=== PATIENT | male | born 1975 | race Caucasian/White ===

== ENCOUNTER 2021-07-05 04:23 | Emergency (ER) | payer OTHER, SELFPAY ==
--- NOTE | ~2021-07-05 | XR_ITS ---
EXAMINATION: XR chest 2V DATE: 07/05/2021 05:08 INDICATION: Chest tightness. Shortness of breath. TECHNIQUE: Frontal and lateral views of the chest were obtained. COMPARISON: Chest 2 views 12/27/2018 FINDINGS: There is mild atelectasis at left lung base. No pleural effusion or pneumothorax. The heart size is normal. There is mild chronic anterior wedging of multiple thoracic vertebral bodies. IMPRESSION: 1. Mild atelectasis at left lung base. Reviewed, dictated and finalized at location B. [employer]
[2021-07-05 04:32] VITALS: BP 188/113; PULSE 91; RESP 18; TEMP 36.6; O2SAT 100
--- NOTE | 2021-07-05 04:39 | ECG_ITS ---
Measurements Intervals [place] Rate: 71 P: 43 CT: 159 QRS: 8 QRSD: 88 T: 21 QT: 360 QTc: 393 Interpretive Statements SINUS RHYTHM WITH SINUS ARRHYTHMIA BASELINE ARTIFACT- V1 NORMAL ECG Electronically Signed On 07-05-2021 6:16:44 WATCH TECHNICIAN by Chemo Pollock D.O.
[2021-07-05 04:57] VITALS: PULSE 71
[2021-07-05 05:08] VITALS: O2SAT 98
[2021-07-05] MEDS: ASPIRIN 81 MG CHEWABLE TABLET 324 MG PO (05:08)
[2021-07-05 05:18] LABS: Basophils Percent Auto 0.4 % (0.2-1.2); Eosinophils Absolute Auto 0.1 K/mm3 (0-0.3); Hematocrit 46.2 % (42.0-52.0); Hemoglobin 15.6 g/dL (14.0-18.0); Immature Granulocyte Absolute 0.02 K/mm3 (0.00-0.031); Immature Granulocyte Percent A 0.4 % (0-0.5); Lymphocytes Absolute Auto 1.24 K/mm3 (0.9-3.2); Lymphocytes Percent Auto 26.4 % (18.3-44.2); Mean Corpuscular HGB Conc 33.8 g/dl (32-36); Mean Corpuscular Hemoglobin 29.7 pg (26-34); Mean Platelet Volume 9.5 fl (7.4-10.4); Monocytes Absolute Auto 0.3 K/mm3 (0.1-0.6); Monocytes Percent Auto 6.6 % (2.6-8.5); Neutrophils Percent Auto 63.2 % (45.5-73.1); Platelet Count Result 266 k/mm3 (150-375); Red Blood Count 5.25 M/mm3 (4.6-6.20); Red Cell Distribution Width 12.4 % (11.5-14.5); White Blood Count 4.7 K/mm3 (4.5-10.0)
[2021-07-05 05:28] LABS: Alanine Aminotransferase 45 U/L (4-50); Albumin Level 4.5 g/dL (3.5-5.1); Alkaline Phosphatase 79 U/L (38-126); Anion Gap 9 mmol/L (8-16); Aspartate Amino Transferase 32 U/L (17-59); Bilirubin,Total 0.5 mg/dL (0.2-1.3); Blood Urea Nitrogen 18 mg/dL (9-20); Calcium 9.7 mg/dL (8.4-10.2); Carbon Dioxide 27 mmol/L (22-30); Chloride 102 mmol/L (98-107); Estimated CRCL calculation 83 ml/min; Estimated Glomerular Filt Rate > 60; Glucose 119 mg/dL (65-110); Lipase 199 U/L (23-300); Potassium 4.1 mmol/L (3.4-5.0); Sodium 138 mmol/L (137-145)
[2021-07-05 05:29] LABS: Prothrombin Time 12.6 Seconds (11.1-14.7)
[2021-07-05 05:30] LABS: Partial Thromboplastin Time 25.4 SECONDS (22.3-36.8)
[2021-07-05] MEDS: LORazepam INJ (*CRX) 2 MG/ML VIAL 0.5 MG IV PUSH (05:38)
[2021-07-05 05:39] VITALS: BP 149/89; PULSE 68; RESP 20; O2SAT 99
[2021-07-05 05:40] LABS: Troponin I < 0.012 ng/mL (0.000-0.034)
--- NOTE | 2021-07-05 05:45 | ED.GENADULT ---
HPI - General Adult General Chief complaint: Chest Pain Stated complaint: HTN, Chest pain Time Seen by Provider: 07/05/21 04:54 History of Present Illness HPI narrative: Patient 46-year-old gentleman who presents the emergency department chief complaint of chest tightness and high blood pressure. The patient reports that this evening he felt a tightness feeling in his chest and reports that he noticed his blood pressure was elevated. The patient states that it felt like a heaviness or fullness in his chest reports that did not radiate to his neck the patient denies diaphoresis patient reports his blood pressure was 190/120 the patient states that he has been under little bit more stress the patient states that the pain in his chest is doing little bit better Related Data Home Medications Medication Instructions Recorded Confirmed omeprazole 40 mg capsule,delayed 40 mg PO DAILY 12/08/19 12/08/19 release Allergies Allergy/AdvReac Type Severity Reaction Status Date / Time No Known Allergies Allergy Verified 07/05/21 04:38 Review of Systems Review of Systems: A 10 system review of systems was completed on the patient and is negative except for what is stated in the HPI. Nursing and ancillary documentation was reviewed. [facility] Past Medical History Medical History (Updated 07/05/21 @ 06:21 by Husam West MD) Asthma Bipolar 2 disorder Hypertension Family History Family History Mother Depression Asthma Father , Age 37 Unknown No problems noted. Sibling Schizophrenia Social History Social History Smoking status: Never smoker Alcohol intake: current Drinks per week: 21 Alcohol use details: drinks 3 glasses of wine daily Substance use: never Gender identity (if verbalized by the patient): Male Exam Narrative: GENERAL: Well-appearing, well-nourished, and in no acute distress. HEAD: Normocephalic, atraumatic. EYES: PERRLA and EOMI. ENT: Nares clear, no rhinorrhea or epistaxis. Mucous membranes moist. NECK: Supple. CHEST: Clear to auscultation. No respiratory distress. HEART: Regular rate and rhythm. No murmur heard. Normal peripheral pulses. ABDOMEN: Soft, nontender, nondistended, normal active bowel sounds. EXTREMITIES: Normal range of motion. No edema. SKIN: Warm, dry, no rash. NEURO: No focal deficits. Alert and oriented x3. PSYCH: Normal mood and affect. Course Course Emergency Course: EKG sinus rhythm rate of [address] elevation or ST depression Chest x-ray shows no focal infiltrate Vital Signs Vital signs: Vital Signs Temperature 36.6 C 07/05/21 04:32 Pulse Rate 91 07/05/21 04:32 Respiratory Rate 18 07/05/21 04:32 Blood Pressure 188/113 H 07/05/21 04:32 Pulse Oximetry 100 07/05/21 04:32 Temperature 36.6 C 07/05/21 04:32 Pulse Rate 68 07/05/21 05:39 Respiratory Rate 20 07/05/21 05:39 Blood Pressure 149/89 H 07/05/21 05:39 Pulse Oximetry 99 07/05/21 05:39 Medical Decision Making Vital Signs Vital Signs: Vital Signs Temperature 36.6 C 07/05/21 04:32 Pulse Rate 91 07/05/21 04:32 Respiratory Rate 18 07/05/21 04:32 Blood Pressure 188/113 H 07/05/21 04:32 Pulse Oximetry 100 07/05/21 04:32 Temperature 36.6 C 07/05/21 04:32 Pulse Rate 68 07/05/21 05:39 Respiratory Rate 20 07/05/21 05:39 Blood Pressure 149/89 H 07/05/21 05:39 Pulse Oximetry 99 07/05/21 05:39 Lab Data Result diagrams: 07/05/21 04:48 07/05/21 04:48 Labs: Lab Results 07/05/21 07/05/21 07/05/21 Range/Units 04:48 04:48 04:48 WBC 4.7 (4.5-10.0) K/mm3 RBC 5.25 (4.6-6.20) M/mm3 Hgb 15.6 (14.0-18.0) g/dL Hct 46.2 (42.0-52.0) % MCV 88.0 (80-100) fl MCH 29.7 (26-34) pg MCHC 33.8 (32-36) g/dl RDW 12.4
[2021-07-05 06:38] VITALS: BP 137/93; PULSE 66; RESP 18; O2SAT 100
== END 2021-07-05 06:39 | disposition home or self-care (01) ==
PROVIDERS: Emergency Provider Emergency Medicine; PCP Internal Medicine
DX: R07.89 Other chest pain (principal); I10 Essential (primary) hypertension; J45.909 Unspecified asthma, uncomplicated; F31.81 Bipolar II disorder
CPT/HCPCS: 36415; 71046; 80053; 83690; 84484; 85025; 85610; 85730; 93005; 96374; 99284; A9270; J2060

== ENCOUNTER 2021-10-26 03:24 | Inpatient (IN) | payer OTHER, SELFPAY ==
[2021-10-26] VITALS (12 sets, daily range): BP systolic 125–145; BP diastolic 69–86; PULSE 83–105; RESP 16–18; TEMP 37.1–37.8; O2SAT 96–100; BMI 27.8
--- NOTE | ~2021-10-26 | CT_ITS ---
EXAMINATION: CT drain retroperitoneal, CT drain retroperitoneal DATE: 10/28/2021 12:04 (accession [id number]), 10/28/2021 12:05 (accession [id number]) INDICATION: Retroperitoneal abscesses post perforated appendicitis TECHNIQUE: The procedure including the risks and benefits was discussed with the patient. Risks discu ssed included bleeding and infection. The patient understood the risks and benefits and agreed to pro ceed. The patient was confirmed to be receiving appropriate antibiotic coverage. The skin overlying the lateral right lower quadrant of the abdomen was prepped and draped in usual sterile fashion. Cons cious sedation was provided with 150 mcg fentanyl and 1 mg Versed. Local anesthetic was administered with 1% lidocaine subcutaneously. 18-gauge needles were inserted into both the right lower quadrant p eriappendiceal abscess as well as the right psoas abscess with positioning confirmed by CT. The inner stylette was removed and a J-wire was advanced into both fluid collections with positioning again co nfirmed by CT. Utilizing Seldinger technique the needle was removed over the wires and the tracts ser ially dilated to 12 Lebanese. Following tract dilation 12 Fr catheters were inserted over the wires int o both of the fluid collections. The loops were formed and locked and following confirmation of posit ioning by CT the wires were removed. The catheters were stitched to the skin with suture, antibiotic ointment and a sterile dressing applied. 7 mL of opaque reddish fluid was aspirated from the psoas ab scess. 8 mm of opaque reddish-beaulieu fluid was aspirated from the periappendiceal abscess. Both catheter s were then attached to suction drainage and was draining small amount of additional fluid at the con clusion of the procedure. There were no immediate complications. The dose-length product was 260.25 m Gy-cm. FINDINGS: CT images demonstrate the catheters within both the periappendiceal abscess as well as the right psoas muscle abscess. A total of 15 mL fluid was aspirated for testing. IMPRESSION: 1. Successful CT-guided periappendiceal abscess drainage catheter placement. 2. Successful CT-guided right psoas abscess drainage catheter placement. Reviewed, dictated and finalized at location A. IMPRESSION: 1. Successful CT-guided periappendiceal abscess drainage catheter placement. 2. Successful CT-guided right psoas abscess drainage catheter placement.
--- NOTE | ~2021-10-26 | CT_ITS ---
EXAMINATION: CT abdomen pelvis w con INDICATION: Right-sided abdominal pain TECHNIQUE: Computed tomographic images of the abdomen and pelvis were obtained after the administrati on of 100 cc of Omnipaque 350 intravenous contrast. The dose-length product (DLP) was 836.34 mGy-cm. Automated exposure control and iterative reconstruction technique were employed. COMPARISON: None available FINDINGS: Minimal dependent atelectasis is present in the lung bases. The heart size is normal. There is a small sliding hiatal hernia. The liver, spleen, pancreas, gallbladder, and adrenal glands are n ormal. The kidneys are unremarkable. The appendix is enlarged and ill-defined. There is marked inflam mation of the periappendiceal fat. There is a 5.2 x 3.6 cm abscess of the right lower quadrant. There is a second 4.4 x 2.7 cm abscess abutting or involving the right iliopsoas muscle. No pathologically enlarged abdominal or pelvic lymph nodes are identified. There are no dilated loops of bowel. IMPRESSION: 1. Perforated appendicitis with right lower quadrant abscesses as described above. These findings wer e discussed with Dr. Nguyen in the Emergency Department at 0819 hours on 10/26/2021. Reviewed, dictated and finalized at location A. IMPRESSION: 1. Perforated appendicitis with right lower quadrant abscesses as described abo ve. These findings were discussed with Dr. Nguyen in the Emergency Department at 0819 hours on 10/26/2021.
[2021-10-26] MEDS: SODIUM CHLORIDE 0.9% IV 1,000 ML 999 ML IV CONT (04:38)
[2021-10-26] MEDS: diphenhydrAMINE HCl INJ 50 MG/ML VIAL IV PUSH (04:38)
[2021-10-26] MEDS: METOCLOPRAMIDE HCL INJ 10 MG/2 ML VIAL IV PUSH (04:38)
--- NOTE | 2021-10-26 04:52 | ED.GENADULT ---
HPI - General Adult General Chief complaint: Nausea/Vomiting/Diarrhea Stated complaint: N/V Time Seen by Provider: 10/26/21 04:16 History of Present Illness HPI narrative: Patient is a a 46-year-old gentleman who presents to the emergency department with chief complaint of nausea vomiting and abdominal discomfort. The patient states he has not been feeling right since he was started on a antidepressant medication. Patient states that that he stopped the medication several days ago but continues to have nausea vomiting fogginess and is also started having abdominal pain and had 1 episode of diarrhea. Patient pain is more on the right side of his abdomen reports that it is worsened with movement improved with rest. Related Data Home Medications Medication Instructions Recorded Confirmed omeprazole 40 mg capsule,delayed 40 mg PO DAILY 12/08/19 12/08/19 release Allergies Allergy/AdvReac Type Severity Reaction Status Date / Time No Known Allergies Allergy Verified 09/10/21 10:20 Review of Systems Review of Systems: A 10 system review of systems was completed on the patient and is negative except for what is stated in the HPI. Nursing and ancillary documentation was reviewed. [facility] Past Medical History Medical History Asthma Hypertension Family History Family History Mother Depression Asthma Father , Age 37 Unknown No problems noted. Sibling Schizophrenia Social History Social History Smoking status: Never smoker Alcohol intake: current Drinks per week: 21 Alcohol use details: drinks 3 glasses of wine daily Substance use: never Gender identity (if verbalized by the patient): Male Exam Narrative: GENERAL: Well-appearing, well-nourished, and in no acute distress. HEAD: Normocephalic, atraumatic. EYES: PERRLA and EOMI. ENT: Nares clear, no rhinorrhea or epistaxis. Mucous membranes moist. NECK: Supple. CHEST: Clear to auscultation. No respiratory distress. HEART: Regular rate and rhythm. No murmur heard. Normal peripheral pulses. ABDOMEN: Soft, tenderness to the right lower quadrant, nondistended, normal active bowel sounds. EXTREMITIES: Normal range of motion. No edema. SKIN: Warm, dry, no rash. NEURO: No focal deficits. Alert and oriented x3. PSYCH: Normal mood and affect. Course Vital Signs Vital signs: Vital Signs Temperature 37.2 C 10/26/21 03:26 Pulse Rate 105 H 10/26/21 03:26 Respiratory Rate 18 10/26/21 03:26 Blood Pressure 126/86 10/26/21 03:26 Pulse Oximetry 100 10/26/21 03:26 Temperature 37.2 C 10/26/21 03:26 Pulse Rate 105 H 10/26/21 03:26 Respiratory Rate 18 10/26/21 03:26 Blood Pressure 126/86 10/26/21 03:26 Pulse Oximetry 100 10/26/21 03:26 Medical Decision Making Vital Signs Vital Signs: Vital Signs Temperature 37.2 C 10/26/21 03:26 Pulse Rate 105 H 10/26/21 03:26 Respiratory Rate 18 10/26/21 03:26 Blood Pressure 126/86 10/26/21 03:26 Pulse Oximetry 100 10/26/21 03:26 Temperature 37.2 C 10/26/21 03:26 Pulse Rate 105 H 10/26/21 03:26 Respiratory Rate 18 10/26/21 03:26 Blood Pressure 126/86 10/26/21 03:26 Pulse Oximetry 100 10/26/21 03:26 Lab Data Result diagrams: 10/26/21 04:42 10/26/21 04:42 Labs: Lab Results 10/26/21 10/26/21 10/26/21 Range/Units 04:42 04:42 04:42 WBC Pending RBC Pending Hgb Pending Hct Pending MCV Pending MCH Pending MCHC Pending RDW Pending Plt Count Pending MPV Pending Immature Gran % (Auto) Pending Neut % (Auto) Pending Lymph % (Auto) Pending [place] % (Auto) Pending Eos % (Auto) Pending Baso % (Auto) Pending Lymph # (Auto)
[2021-10-26 05:01] LABS: Basophils Percent Auto 0.1 % (0.2-1.2); Eosinophils Absolute Auto 0.1 K/mm3 (0-0.3); Eosinophils Percent Auto 0.4 % (0-4.4); Hematocrit 38.3 % (42.0-52.0); Hemoglobin 12.6 g/dL (14.0-18.0); Immature Granulocyte Percent A 0.7 % (0-0.5); Lymphocytes Absolute Auto 0.75 K/mm3 (0.9-3.2); Lymphocytes Percent Auto 5.5 % (18.3-44.2); Mean Corpuscular HGB Conc 32.9 g/dl (32-36); Mean Corpuscular Hemoglobin 29.2 pg (26-34); Mean Corpuscular Volume 88.7 fl (80-100); Monocytes Absolute Auto 1.3 K/mm3 (0.1-0.6); Monocytes Percent Auto 9.4 % (2.6-8.5); Neutrophils Absolute Auto 11.5 K/mm3 (1.3-6.7); Neutrophils Percent Auto 83.9 % (45.5-73.1); Platelet Count Result 549 k/mm3 (150-375); Red Blood Count 4.32 M/mm3 (4.6-6.20); Red Cell Distribution Width 12.4 % (11.5-14.5); White Blood Count 13.7 K/mm3 (4.5-10.0)
[2021-10-26 05:02] LABS: Lactic Acid Reflex 1.1 mmol/L (0.7-2.0); Magnesium 2.1 mg/dL (1.6-2.3)
[2021-10-26 05:04] LABS: Alanine Aminotransferase 90 U/L (4-50); Albumin Level 3.9 g/dL (3.5-5.1); Alkaline Phosphatase 326 U/L (38-126); Anion Gap 10 mmol/L (8-16); Aspartate Amino Transferase 49 U/L (17-59); Bilirubin,Total 0.8 mg/dL (0.2-1.3); Blood Urea Nitrogen 13 mg/dL (9-20); Carbon Dioxide 20 mmol/L (22-30); Chloride 101 mmol/L (98-107); Estimated CRCL calculation 87 ml/min; Estimated Glomerular Filt Rate > 60; Glucose 110 mg/dL (65-110); Lipase 110 U/L (23-300); Potassium 4.1 mmol/L (3.4-5.0); Sodium 131 mmol/L (137-145)
[2021-10-26 06:21] LABS: Appearance Urine Clear (Clear); Bilirubin Urine Negative (Negative); Blood Urine Trace-lysed (Negative); Color Urine Yellow (Yellow); Glucose Urine UA Negative (Negative); Ketones Urine Negative (Negative); Leukocyte Esterase Ur Negative LEU/UL (Negative); Nitrate Urine Negative (Negative); Protein Urine Negative (Negative); Specific Grav Ur <= 1.005 (1.001-1.035); Urobilinogen Urine 0.2 mg/dL (<2.0)
[2021-10-26 06:25] LABS: Mucus Urine Rare /lpf; Squamous Epithelial Cell Urine Rare /hpf (Few); WBC Urine 0-3 /hpf
[2021-10-26 06:26] LABS: Add Urine Microscopic? YES
[2021-10-26] MEDS: SODIUM CHLORIDE 0.9% IV 1,000 ML 150 ML IV CONT (09:43)
[2021-10-26] MEDS: HYDROmorphone HCL INJ (*CRX) 1 MG/ML SYR IV PUSH (11:02)
--- NOTE | 2021-10-26 11:22 | PM.IMHP ---
H&P: HPI History of Present Illness Date/Time: 10/26/21 11:22This patient is a pleasant 46-year-old white male who apparently began having abdominal pain about 2 weeks ago. He did not seek care until today. Workup in the emergency room here at [place] revealed elevated white count and what appears to be a perforated appendix with 2 associated abscesses possibly in the retrocecal position. Further history from the patient his on interview reveals that he actually began having some abdominal pain almost 10-12 days ago. Because he has vomiting about 3 times a week associated with his GERD he was not notice anything bad enough to get further evaluation. Also, just about that time his PCP had changed him to a new anti anxiety drug the escitalopram. Since he was having the loose stools and some vomiting they called 5 days ago and that was stopped in case when he was having was a side effect of the drug. However his pain continued to build and he skipped work yesterday. He really wanted to go to work this morning but again was having some nausea and vomiting and instead came to the ED. (please see ED reports for further details ). Workup in the emergency room showed the patient did have elevated white count and his CT scan revealed the above findings of perforated appendix with pericolonic/ periappendiceal abscess. Chief Complaint: Right lower quadrant abdominal pain with nausea and diarrhea. Review of Systems Constitutional: Constitutional: Reports no additional constitutional complaints and Denies frequent falls Eyes: Eyes: Reports as per HPI ENT: Reports Normal hearing present, Denies dizziness and Reports other (Mucous membranes moist.) Cardiovascular: Cardiovascular: Denies chest pain, Denies palpitations, Denies dyspnea and Denies dyspnea on exertion Comments: History of hypertension on lisinopril Respiratory: Respiratory: Denies hemoptysis, Denies dyspnea, Denies dyspnea on exertion and Denies wheezing Comments: History of mild asthma that he only occasionally uses Primatene mist for. Gastrointestinal: Gastrointestinal: Reports no additional gastrointestinal complaints Comments: history of GERD and has been taking [id number] Prilosec to 20 mg tablets once a day. However, he reports that even a month or 2 ago he had vomiting as often as 3 times per week with this. Genitourinary: Genitourinary: Denies hematuria, Denies nocturia and Denies urinary frequency Musculoskeletal: Musculoskeletal: Denies deformity and Reports other ( no clubbing,cyanosis, or edema) Integumentary/Breasts: Skin/Breast: Denies new lesions, Denies rash and Denies unusual bruising Neurologic: Reports Normal hearing present, Denies dizziness, Denies frequent falls, Denies memory loss and Denies seizure-like activity Psychiatric: Psychiatric: Reports anxiety, Denies memory loss and Reports other (Otherwise normal mood and mental status) Comments: Patient deals with problems with anxiety therefore was on Seroquel and Buspirone. these were stopped recently and his PCP was trying a new 1 as listed on his record. Then because of possible side effects it was also stopped. So for the last several days he has not taken anything for this other than occasional lorazepam. Endocrine: Endocrine: Denies cold intolerance and Denies palpitations Hematologic/Lymphatic: Hematologic/Lymphatic: Denies easy bleeding and Denies easy bruising Allergic/Immunologic: Allergic/Immunologic: Denies wheezing and Reports other ( no lymphadenopathy) [facility]LY [facility], [facility] Past Medical History Medical History (Updated 10/26/21 @ 13:30 by Toribio Juan MD) Asthma Cutaneous abscess of right lower extremity Hypertension Surgical History Surgical History (Updated 10/26/21 @ 13:30 by Toribio Juan MD) History of incision and drainage MRSA abscess right thigh approximately 2009 Family History Family History Dorene
--- NOTE | 2021-10-26 12:05 | ADMGEN ---
This patient, Kyle Scanlon, was admitted to Medical Room 249-01. Patient/family oriented to hospital policies and general routines including ID bracelet, bed and alarms, visiting hours, pain management, procedures, bathroom and other care routines, personal items, smoking policy, room service/diet, and visiting hours. Information on how to activate the Rapid Response Team has been discussed. Patient/Family are encouraged to report perceived risks to care and to ask questions if they do not understand what they are told or what they should do.
[2021-10-26] MEDS: HYDROcodone/acetaminophen (*CRX) 7.5-325 MG TABLET 1 TAB PO ×2 (16:10→22:12)
[2021-10-26] MEDS: MORPHINE SULFATE (*CRX) 2 MG/ML INJ IV PUSH ×2 (16:34→19:39)
[2021-10-26] MEDS: ONDANSETRON INJ 4 MG/2 ML VIAL IV PUSH (19:38)
[2021-10-26] MEDS: PANTOPRAZOLE SODIUM IV 40 MG VIAL IV PUSH (19:46)
[2021-10-26] MEDS: ACETAMINOPHEN 500 MG TABLET 1000 MG PO (22:35)
[2021-10-27] MEDS: MORPHINE SULFATE (*CRX) 2 MG/ML INJ IV PUSH (06:17)
[2021-10-27 06:37] VITALS: BP 107/71; PULSE 86; RESP 16; TEMP 37; O2SAT 94
[2021-10-27 06:46] LABS: Basophils Percent Auto 0.2 % (0.2-1.2); Eosinophils Absolute Auto 0.1 K/mm3 (0-0.3); Eosinophils Percent Auto 0.5 % (0-4.4); Hematocrit 38.9 % (42.0-52.0); Hemoglobin 12.5 g/dL (14.0-18.0); Immature Granulocyte Absolute 0.13 K/mm3 (0.00-0.031); Immature Granulocyte Percent A 0.9 % (0-0.5); Lymphocytes Absolute Auto 0.69 K/mm3 (0.9-3.2); Lymphocytes Percent Auto 4.7 % (18.3-44.2); Mean Corpuscular HGB Conc 32.1 g/dl (32-36); Mean Corpuscular Hemoglobin 29.2 pg (26-34); Mean Corpuscular Volume 90.9 fl (80-100); Mean Platelet Volume 9.4 fl (7.4-10.4); Monocytes Percent Auto 6.8 % (2.6-8.5); Neutrophils Absolute Auto 12.8 K/mm3 (1.3-6.7); Neutrophils Percent Auto 86.9 % (45.5-73.1); Platelet Count Result 548 k/mm3 (150-375); Red Blood Count 4.28 M/mm3 (4.6-6.20); Red Cell Distribution Width 12.7 % (11.5-14.5); White Blood Count 14.7 K/mm3 (4.5-10.0)
[2021-10-27 06:59] LABS: Anion Gap 9 mmol/L (8-16); Blood Urea Nitrogen 9 mg/dL (9-20); Carbon Dioxide 25 mmol/L (22-30); Chloride 99 mmol/L (98-107); Estimated CRCL calculation 87 ml/min; Estimated Glomerular Filt Rate > 60; Glucose 101 mg/dL (65-110); Potassium 4.2 mmol/L (3.4-5.0); Sodium 133 mmol/L (137-145)
[2021-10-27 07:05] LABS: INR 1.4; Prothrombin Time 16.2 Seconds (11.1-14.7)
[2021-10-27 07:06] LABS: Partial Thromboplastin Time 41.4 SECONDS (22.3-36.8)
[2021-10-27] MEDS: PANTOPRAZOLE SODIUM IV 40 MG VIAL IV PUSH ×2 (08:09→21:13)
[2021-10-27] MEDS: lisinopriL 10 MG TABLET PO (08:09)
[2021-10-27] MEDS: HYDROcodone/acetaminophen (*CRX) 5-325 MG TABLET 1 TAB PO ×3 (08:16→21:11)
[2021-10-27 09:00] VITALS: BP 122/66; PULSE 93; RESP 17; TEMP 36.4; O2SAT 100
[2021-10-27] MEDS: ONDANSETRON INJ 4 MG/2 ML VIAL IV PUSH ×2 (15:10→23:01)
[2021-10-27 16:00] VITALS: BP 121/66; PULSE 87; RESP 17; TEMP 37.1; O2SAT 100
--- NOTE | 2021-10-27 18:48 | PM.PNGS ---
Progress Note: A&P Assessment and Plan (1) Acute appendicitis with perforation, localized peritonitis, and abscess: Code(s): K35.33 - Acute appendicitis with perforation and localized peritonitis, with abscess Status: Acute Assessment and Plan: At this time I have had a thorough discussion with the patient and his . At this time I do not recommend surgical intervention as we may worsen the situation by spreading bacteria throughout the abdomen i.e. peritonitis. Since this appears to be a walled-off process in the retrocecal position ideally we would have this drained by percutaneous drainage. Patient seems stable and has done okay now for as much as 10 days without antibiotics. We will start him on IV antibiotics hydrate him and allow him to have clear liquids as long as he is not nauseated. I have discussed his situation with our radiologist and one of our interventional radiologist will be available first thing Thursday to consider placing a percutaneous drain by CT or ultrasound guidance into these periappendiceal abscesses. I would recommend 10-14 days of IV/ oral antibiotics and CT-guided drainage of these for treatment. We will do repeat labs Thursday and alter our plans if the patient seems to be get worse rather than better on IV antibiotics and bowel rest. he is scheduled for CT-guided drainage in the a.m. Since he is doing okay it is our plan to proceed with this. Will allow him to have clear liquids until midnight and NPO at midnight again. We then did discuss the possibility of recommending a interval appendectomy once all the inflammation has settled down especially in view of the patient's age and the fact that he has never had a colonoscopy or Cologuard test. This can be further determined as we watch his progress. (2) GERD (gastroesophageal reflux disease): Code(s): K21.9 - Gastro-esophageal reflux disease without esophagitis Status: Acute Assessment and Plan: Will continue PPI IV for now until patient can routinely take oral meds. (3) Hypertension: Qualifiers: Hypertension type: unspecified Qualified Code(s): I10 - Essential (primary) hypertension Code(s): I10 - Essential (primary) hypertension Status: Acute Assessment and Plan: Will continue lisinopril if patient tolerating liquids. If patient needs to be NPO Will add hydralazine as a p.r.n. if systolic goes over 160. (4) Anxiety: Code(s): F41.9 - Anxiety disorder, unspecified Status: Acute Subjective Subjective Date/Time Seen: 10/27/21 18:48 Patient reports: no new complaints and feels better Interval history: Patient states his pain is decreased and he is not having to take pain medication as often. He is tolerating his clear liquid diet that I let him start having again since his white count was about the same as yesterday or slightly lower. He has run a low-grade fever but has not spiked any fevers. Review of Systems Review of Systems: All systems reviewed & are unremarkable except as noted in HPI and below Constitutional: Constitutional: Reports as per HPI, Denies chills and Denies fever(s) Cardiovascular: Cardiovascular: Denies chest pain and Denies dyspnea Respiratory: Respiratory: Reports no additional respiratory complaints and Denies dyspnea Gastrointestinal: Gastrointestinal: Reports as per HPI and Denies bloating Musculoskeletal: Musculoskeletal: Reports no additional musculoskeletal complaints Neurologic: Denies memory loss Psychiatric: Psychiatric: Denies anxiety and Denies memory loss Exam Const: General: cooperative, comfortable, alert and awake Orientation/consciousness: patient oriented x3 HENMT: Head: normal to inspection Mouth: Yes moist mucous membranes Chest: Chest palpation & inspection: normal inspection of the chest Resp: Effort & Inspection: normal respiratory effort Auscultation: clear to auscultation bilater
[2021-10-27 21:11] VITALS: BP 111/68; PULSE 91; RESP 18; TEMP 37.9; O2SAT 100
[2021-10-28] VITALS (25 sets, daily range): BP systolic 109–128; BP diastolic 65–95; PULSE 69–95; RESP 12–22; TEMP 36.6–36.9; O2SAT 96–100
[2021-10-28] MEDS: HYDROcodone/acetaminophen (*CRX) 5-325 MG TABLET 1 TAB PO ×2 (03:12→09:24)
[2021-10-28 08:46] LABS: Basophils Percent Auto 0.1 % (0.2-1.2); Eosinophils Absolute Auto 0.1 K/mm3 (0-0.3); Hematocrit 36.6 % (42.0-52.0); Hemoglobin 11.7 g/dL (14.0-18.0); Immature Granulocyte Absolute 0.11 K/mm3 (0.00-0.031); Immature Granulocyte Percent A 0.9 % (0-0.5); Lymphocytes Absolute Auto 0.59 K/mm3 (0.9-3.2); Lymphocytes Percent Auto 4.9 % (18.3-44.2); Mean Corpuscular Hemoglobin 28.7 pg (26-34); Mean Corpuscular Volume 89.9 fl (80-100); Mean Platelet Volume 9.2 fl (7.4-10.4); Monocytes Absolute Auto 0.7 K/mm3 (0.1-0.6); Monocytes Percent Auto 6.1 % (2.6-8.5); Neutrophils Absolute Auto 10.6 K/mm3 (1.3-6.7); Platelet Count Result 563 k/mm3 (150-375); Red Blood Count 4.07 M/mm3 (4.6-6.20); Red Cell Distribution Width 12.6 % (11.5-14.5); White Blood Count 12.1 K/mm3 (4.5-10.0)
[2021-10-28] MEDS: lisinopriL 10 MG TABLET PO (08:50)
[2021-10-28] MEDS: PANTOPRAZOLE SODIUM IV 40 MG VIAL IV PUSH ×2 (08:50→20:23)
[2021-10-28 08:57] LABS: INR 1.3; Prothrombin Time 15.6 Seconds (11.1-14.7)
[2021-10-28 08:58] LABS: Partial Thromboplastin Time 36.7 SECONDS (22.3-36.8)
--- NOTE | 2021-10-28 12:52 | WPDMODSED ---
Moderate Sedation Note-Pt Data Patient Data Allergies Allergy/AdvReac Type Severity Reaction Status Date / Time No Known Allergies Allergy Verified 09/10/21 10:20 Home Medications Medication Instructions Recorded Confirmed Type omeprazole 40 mg capsule,delayed 40 mg PO DAILY 12/08/19 10/26/21 History release quetiapine 50 mg tablet See Rx Instructions .ROUTE 05/29/20 10/26/21 Rx .COMPLEX #90 tablet rosuvastatin 5 mg tablet 5 mg PO DAILY #30 tablet 09/05/21 10/26/21 Rx escitalopram oxalate 10 mg tablet 10 mg PO DAILY #30 tablet 09/10/21 10/26/21 Rx lorazepam 0.5 mg tablet 0.5 mg PO DAILY PRN #30 tablet 09/10/21 10/26/21 Rx lisinopril 10 mg tablet 10 mg PO DAILY #30 tablet 10/10/21 10/26/21 Rx Current Medications: Active Medications Acetaminophen (Acetaminophen 500 Mg Tablet) 1,000 mg PO Q6H PRN PRN Reason: Mild Pain (1-3) or Fever Last Admin: 10/26/21 22:35 Dose: 1,000 mg Documented by: Hydrocodone Bitart/Acetaminophen (Hydrocodone/Acetaminophen (*Crx) 5-325 Mg Tablet) 1 tab PO Q6H PRN PRN Reason: Moderate Pain (4-6) Last Admin: 10/28/21 09:24 Dose: 1 tab Documented by: Hydrocodone Bitart/Acetaminophen (Hydrocodone/Acetaminophen (*Crx) 7.5-325 Mg Tablet) 1 tab PO Q6H PRN PRN Reason: Pain Rated 7-10 Last Admin: 10/26/21 22:12 Dose: 1 tab Documented by: Piperacillin/Tazobactam/Dextrose (Zosyn 3.375 Gm/D5w 50ml Pm) 3.375 gm in 50 mls @ 100 mls/hr IVPB Q6H NIGHAT Last Admin: 10/28/21 12:38 Dose: 100 mls/hr Documented by: Lisinopril (Lisinopril 10 Mg Tablet) 10 mg PO DAILY NIGHAT Last Admin: 10/28/21 08:50 Dose: 10 mg Documented by: Lorazepam (Lorazepam Inj (*Crx) 2 Mg/Ml Vial) 0.5 mg IV PUSH Q6H PRN PRN Reason: Anxiety Morphine Sulfate (Morphine Sulfate (*Crx) 2 Mg/Ml Inj) 4 mg IV PUSH Q3H PRN PRN Reason: Pain Rated 7-10 Morphine Sulfate (Morphine Sulfate (*Crx) 2 Mg/Ml Inj) 2 mg IV PUSH Q3H PRN PRN Reason: Pain Rated 4-6 Last Admin: 10/27/21 06:17 Dose: 2 mg Documented by: Naloxone HCl (Naloxone Hcl 0.4 Mg/Ml Vial) 0.1 mg IV PUSH Q2M PRN PRN Reason: Opiate Reversal Ondansetron HCl (Ondansetron Inj 4 Mg/2 Ml Vial) 4 mg IV PUSH Q4H PRN PRN Reason: Nausea Last Admin: 10/27/21 23:01 Dose: 4 mg Documented by: Pantoprazole Sodium (Pantoprazole Sodium Iv 40 Mg Vial) 40 mg IV PUSH Q12HR NIGHAT Last Admin: 10/28/21 08:50 Dose: 40 mg Documented by: Sedation/Anesthesia: No previous sedation/anesthesia problems (including family history). [facility] Past Medical History Medical History Asthma Cutaneous abscess of right lower extremity Hypertension Surgical History Surgical History History of incision and drainage MRSA abscess right thigh approximately 2009 Family History Family History Mother Depression Asthma Father , Age 37 Unknown No problems noted. Sibling Schizophrenia Social History Social History Smoking status: Never smoker Alcohol intake: current Drinks per week: 21 Alcohol use details: drinks 3 glasses of wine daily Substance use: never Gender identity (if verbalized by the patient): Male Spiritual care concerns: No Mod Sed Physical Exam Physical Exam Pre Procedural Exam: Normal: Appearance, Throat, Lungs, Heart Rate, Heart Rhythm and Skin and Variation: Abdomen (Soft, TTP RLQ) Hours since solid foods: 12 Hours since liquid intake: 12 Mallampati Classification: class II Internal Medicine - PN: Obj Da Vital Signs Vital Signs: Vital Signs - 24 hr 10/27/21 16:00 10/27/21 21:11 10/28/21 06:00 Temperature 98.8 F 100.2 F H 98.4 F Pulse Rate 87 91 84 Respiratory Rate 17 18 12 Blood Pressure 121/66 111/68 125/79 Pulse Oximetry 100 100 97 10/28/21 09:36 10/28/21 10:30 10/28/21 10:35 Temperature
[2021-10-28] MEDS: HYDROcodone/acetaminophen (*CRX) 7.5-325 MG TABLET 1 TAB PO ×2 (14:04→20:22)
--- NOTE | 2021-10-28 15:24 | SUR.OPER ---
See moderate sedation med sheet. Pt tolerated procedure well.
--- NOTE | 2021-10-28 16:18 | PM.PNGS ---
Progress Note: A&P Assessment and Plan (1) Acute appendicitis with perforation, localized peritonitis, and abscess: Code(s): K35.33 - Acute appendicitis with perforation and localized peritonitis, with abscess Status: Acute Assessment and Plan: S/p percutaneous drain placement in IR x 2. He is now with 2 RLQ perc drains, which I have asked the nurse to label in order for us to keep track of output. Cultures pending. Continue IV Zosyn. Encouraged walking the halls. Will advance to a soft diet for breakfast tomorrow if he continues to tolerate full liquids. Repeat labs tomorrow. (2) GERD (gastroesophageal reflux disease): Code(s): K21.9 - Gastro-esophageal reflux disease without esophagitis Status: Acute Assessment and Plan: Continue IV Protonix, could switch to his omeprazole tomorrow if continues to tolerate a diet. (3) Hypertension: Qualifiers: Hypertension type: unspecified Qualified Code(s): I10 - Essential (primary) hypertension Code(s): I10 - Essential (primary) hypertension Status: Acute Assessment and Plan: Continue lisinopril. BP stable. Continue to monitor. (4) Anxiety: Code(s): F41.9 - Anxiety disorder, unspecified Status: Acute Assessment and Plan: Currently has PRN Ativan IV, but has not needed this since admission. Continue to monitor. Additional Plan I have discussed the patient's case and plan of care with Dr. Juan. Subjective Subjective Date/Time Seen: 10/28/21 16:18 Patient reports: no new complaints, feels better, tolerating liquids well and fever (100.2F last night around 2100) Interval history: 46-year-old male who presented with acute perforated appendicitis. Chart reviewed. Currently on IV Zosyn. Patient seen and examined. He reports still having some RLQ abdominal paint that has improved. He had some nausea overnight and again this morning, but this has since resolved. No vomiting. He has tolerated liquids well. He reports flatus and a BM earlier today. No other complaints. He is s/p perc drain placement x 2 by IR today. Review of Systems Review of Systems: All systems reviewed & are unremarkable except as noted in HPI and below Exam Const: General: comfortable, no acute distress, alert and awake Orientation/consciousness: patient oriented x3 Resp: Effort & Inspection: normal respiratory effort Auscultation: clear to auscultation bilaterally Cardio: Rate: regular rate Rhythm: regular rhythm GI: Inspection: non-distended GI Palp: Yes Soft to palpation, Yes Tenderness to palpation present (GI) (RLQ), No Guarding due to palpation present (GI) and No Rebound tenderness present Auscultation: normal bowel sounds Other: RLQ perc drain x2 with scant amount of beaulieu/pink drainage in the tubing. Neuro: General: moves all extremities and no focal motor deficits Extrem: General: no clubbing, cyanosis or edema and no calf tenderness Psych: Insight: Good insight present (Psych) Judgement: Good judgement present (Psych) Objective Data Vital Signs Vital Signs: Vital Signs - 24 hr 10/27/21 21:11 10/28/21 06:00 10/28/21 09:36 Temperature 100.2 F H 98.4 F Pulse Rate 91 84 Respiratory Rate 18 12 Blood Pressure 111/68 125/79 Pulse Oximetry 100 97 96 10/28/21 10:30 10/28/21 10:35 10/28/21 10:40 Temperature Pulse Rate 91 92 91 Respiratory Rate 19 15 18 Blood Pressure 109/74 122/80 120/78 Pulse Oximetry 100 100 100 10/28/21 10:45 10/28/21 10:50 10/28/21 10:55 Temperature Pulse Rate 88 90 90 Respiratory Rate 16 22 H 19 Blood Pressure 115/66 122/76 125/95 H Pulse Oximetry 100 100 100 10/28/21 11:00 10/28/21 11:05 10/28/21 11:10 Temperature Pulse Rate 95 92 92 Respiratory Rate 18 18 18 Blood Pressure 128/81 119/82 125/73 Pulse Oximetry 100 100 99 10/28/21 11:15 10/28/21 11:20 10/28/21 11:25 Temperature Pulse Rate 94 89 84 Respiratory Rate 15 17 17 Blood Pres
[2021-10-28] MEDS: ACETAMINOPHEN 500 MG TABLET 1000 MG PO (17:02)
[2021-10-28] MEDS: LORazepam INJ (*CRX) 2 MG/ML VIAL 0.5 MG IV PUSH (22:23)
[2021-10-29 04:30] VITALS: O2SAT 99
[2021-10-29 05:43] LABS: Basophils Percent Auto 0.2 % (0.2-1.2); Eosinophils Absolute Auto 0.2 K/mm3 (0-0.3); Eosinophils Percent Auto 2.6 % (0-4.4); Hematocrit 36.5 % (42.0-52.0); Hemoglobin 11.7 g/dL (14.0-18.0); Immature Granulocyte Absolute 0.08 K/mm3 (0.00-0.031); Immature Granulocyte Percent A 0.9 % (0-0.5); Lymphocytes Absolute Auto 0.61 K/mm3 (0.9-3.2); Lymphocytes Percent Auto 7.1 % (18.3-44.2); Mean Corpuscular HGB Conc 32.1 g/dl (32-36); Mean Corpuscular Volume 90.3 fl (80-100); Mean Platelet Volume 9.2 fl (7.4-10.4); Monocytes Absolute Auto 0.6 K/mm3 (0.1-0.6); Monocytes Percent Auto 6.7 % (2.6-8.5); Neutrophils Absolute Auto 7.1 K/mm3 (1.3-6.7); Neutrophils Percent Auto 82.5 % (45.5-73.1); Platelet Count Result 619 k/mm3 (150-375); Red Blood Count 4.04 M/mm3 (4.6-6.20); Red Cell Distribution Width 12.4 % (11.5-14.5); White Blood Count 8.6 K/mm3 (4.5-10.0)
[2021-10-29 06:00] LABS: Alanine Aminotransferase 65 U/L (6-50); Albumin Level 3.2 g/dL (3.5-5.1); Alkaline Phosphatase 241 U/L (38-126); Anion Gap 7 mmol/L (8-16); Aspartate Amino Transferase 44 U/L (17-59); Bilirubin,Total 0.3 mg/dL (0.2-1.3); Blood Urea Nitrogen 11 mg/dL (9-20); Calcium 8.5 mg/dL (8.4-10.2); Carbon Dioxide 27 mmol/L (22-30); Chloride 100 mmol/L (98-107); Estimated CRCL calculation 79 ml/min; Estimated Glomerular Filt Rate > 60; Glucose 94 mg/dL (65-110); Potassium 4.3 mmol/L (3.4-5.0); Sodium 134 mmol/L (137-145)
[2021-10-29] MEDS: ACETAMINOPHEN 500 MG TABLET 1000 MG PO (06:02)
[2021-10-29 06:20] VITALS: BP 120/80; PULSE 71; RESP 16; TEMP 36.9; O2SAT 98
[2021-10-29] MEDS: lisinopriL 10 MG TABLET PO (08:45)
[2021-10-29] MEDS: PANTOPRAZOLE SODIUM IV 40 MG VIAL IV PUSH (08:45)
[2021-10-29] MEDS: HYDROcodone/acetaminophen (*CRX) 5-325 MG TABLET 1 TAB PO (13:04)
--- NOTE | 2021-10-29 13:48 | PM.DS ---
DS: Admitting Diagnosis Discharge Date 10/29/21 Admitting Diagnosis Acute appendicitis with perforation, with abscess, with localized peritonitis GERD Hypertension Anxiety DS: Discharge Diagnosis Discharge Diagnosis (1) Acute appendicitis with perforation, localized peritonitis, and abscess: Code(s): K35.33 - Acute appendicitis with perforation and localized peritonitis, with abscess Status: Acute Assessment and Plan: Treated with IV antibiotics and percutaneous drainage. (2) GERD (gastroesophageal reflux disease): Code(s): K21.9 - Gastro-esophageal reflux disease without esophagitis Status: Acute Assessment and Plan: He was treated with IV protonix while NPO and advancing his diet. This was changed back to his oral PPI on discharge. F/u with PCP. (3) Hypertension: Qualifiers: Hypertension type: unspecified Qualified Code(s): I10 - Essential (primary) hypertension Code(s): I10 - Essential (primary) hypertension Status: Acute Assessment and Plan: BP stable. Home medications were continued. F/u with PCP. (4) Anxiety: Code(s): F41.9 - Anxiety disorder, unspecified Status: Acute Assessment and Plan: Remained stable during his hospitalization. He had Ativan PRN if needed. Recommended follow-up with PCP for further management. DS: Summary Hospital Course Reason for hospitalization: This is a 46 yo male who presented to the ER on 10/26/21 with complaints of abdominal pain for 10-12 days. Workup in the ED showed a perforated appendix with pericolonic/periappendiceal abscesses on the CT. He was admitted to our service in this setting. Hospital Course: He was treated with broad-spectrum IV antibiotics, IV fluids, and initially bowel rest. Due to the extent of the infection with intraabodminal abscesses and length of symptoms, it was decided to treat with antibiotics and percutaneous drainage rather than surgery. He underwent percutaneous drainage in IR with placement of two drains in the RLQ. His diet was slowly advanced, which he tolerated well. Labs were monitored and his WBC slowly trended down to normal prior to discharge. He continued to do well and progress as expected. He was tolerating a diet, bowels moving, and his pain was controlled with oral analgesics. He was stable for discharge and plan was to follow-up with Dr. Juan in the office for drain removal. Status at Discharge Functional status at discharge: independent ambulation Overall status at discharge: patient is progressing back to baseline Time Spent with Patient Time attestation: Total time spent providing and/or coordinating discharge services:20 Time spent: Less than 30 minutes Exam Const: General: no acute distress and awake Orientation/consciousness: patient oriented x3 Resp: Auscultation: clear to auscultation bilaterally Cardio: Rate: regular rate Rhythm: regular rhythm GI: Inspection: non-distended GI Palp: Yes Soft to palpation, Yes Tenderness to palpation present (GI) (RLQ), No Guarding due to palpation present (GI) and No Rebound tenderness present Auscultation: normal bowel sounds Other: RLQ perc drain x2 with scant amount of beaulieu/pink drainage in the tubing. Neuro: General: moves all extremities and no focal motor deficits Extrem: General: no clubbing, cyanosis or edema and no calf tenderness Psych: Insight: Good insight present (Psych) Judgement: Good judgement present (Psych) DS: Data Data Completed and Pending Pending studies at discharge: Abscess cultures pending at time of discharge. Labs on day of discharge: Labs from last 24 hours 10/29/21 10/29/21 05:24 05:24 WBC 8.6 RBC 4.04 L Hgb 11.7 L Hct 36.5 L MCV 90.3 MCH 29.0 MCHC 32.1 RDW 12.4 Plt Count 619 H MPV 9.2 Immature Gran % (Auto) 0.9 H Neut % (Auto) 82.5 H Lymph % (Auto) 7.1 L [place] % (Auto) 6.7 Eos % (Auto) 2.6 Baso % (Auto) 0.2 Lymph #
--- NOTE | 2021-10-29 15:29 | PC.NURSE ---
Showed patient and his spouse how to drain his drain tubes, Drain 1 had 15cc, Drain 2 had 10cc. Both verbally agreed they understood how to drain the drains. They had no questions or concerns.
== END 2021-10-29 15:45 | disposition home or self-care (01) | DRG 371 ==
LOC: ANHED 09:49 → ANH2MED 10:19
PROVIDERS: Emergency Medicine; Radiology Diagnostic Radiology; Admitting Provider Surgery; Emergency Provider Emergency Medicine; PCP Family Medicine; Visit Provider Nurse Practitioner Family
PROC: 0D9J30Z Drainage of Appendix with Drainage Device, Percutaneous Approach (ICD-10-PCS; CPT 75989; principal; 2021-10-28 10:30)
DX: K35.33 Acute appendicitis with perforation, localized peritonitis, and gangrene, with abscess (principal); K68.12 Psoas muscle abscess; K21.9 Gastro-esophageal reflux disease without esophagitis; I10 Essential (primary) hypertension; F41.9 Anxiety disorder, unspecified; J45.909 Unspecified asthma, uncomplicated; Z79.899 Other long term (current) drug therapy
CPT/HCPCS: 36415; 49406; 74177; 80048; 80053; 81001; 83605; 83690; 83735; 85025; 85610; 85730; 87070; 87075; 87076; 87077; 87185; 87205; 96361; 96365; 96375; 99285; A9270; C1729; C1769; C9113; J1170; J1200; J2060; J2250; J2270; J2405; J2543; J2765; J3010; J7030; J7040; Q9967

== ENCOUNTER 2021-11-11 07:46 | Outpatient (CLI) | payer OTHER, SELFPAY ==
--- NOTE | ~2021-11-11 | CT_ITS ---
EXAMINATION: CT abdomen pelvis w con DATE: 11/11/2021 08:31 INDICATION: Recent drain removal TECHNIQUE: Computed tomography (CT) of the abdomen and pelvis was performed with 75 cc Omnipaque 350 intravenous contrast. The dose-length product was 666.84 mGy-cm. Automated exposure control and itera tive reconstruction technique were employed. COMPARISON: CT dated 10/26/2021 FINDINGS: Lung bases are unremarkable. Heart size normal. No significant pleural or pericardial effus ion. The liver, spleen, pancreas, adrenal glands are unremarkable. Gallbladder is present. Nonobstruc tive bowel gas pattern. There is a drainage catheter coiled in the right psoas muscle with near compl ete resolution of phlegmonous soft tissue/abscess in the right lower abdomen/pelvis prior examination . There are calcified granulomas in the liver and spleen. The pancreas, adrenal glands are unremarkab le. There are punctate nonobstructing renal stones. Gallbladder is present. The appendix appears thic kened IMPRESSION: 1. Near complete resolution of phlegmonous change/abscess in the right lower abdomen post drain place ment. 2: Punctate nonobstructing bilateral nephrolithiasis. 3: Thickened appendix, consistent with appendicitis. Reviewed, dictated and finalized at location A. IMPRESSION: 1. Near complete resolution of phlegmonous change/abscess in the right lower ab domen post drain placement. 2: Punctate nonobstructing bilateral nephrolithiasis. 3: Thickened appendix, consistent with appendicitis.
== END 2021-11-11 07:47 | disposition home or self-care (01) ==
PROVIDERS: PCP Family Medicine; Visit Provider Surgery
DX: K35.33 Acute appendicitis with perforation, localized peritonitis, and gangrene, with abscess (principal); N20.0 Calculus of kidney
CPT/HCPCS: 74177; Q9967

== ENCOUNTER 2021-11-17 16:01 | Emergency (ER) | payer OTHER, SELFPAY ==
--- NOTE | ~2021-11-17 | CT_ITS ---
EXAMINATION: CT abdomen pelvis wo con DATE: 11/17/2021 17:15 INDICATION: Recent appendicitis. Low back and abdomen pain. TECHNIQUE: Computed tomography (CT) of the abdomen and pelvis was performed without intravenous contr ast. The dose-length product was 776.86 mGy-cm. Automated exposure control and iterative reconstruction technique were employed. COMPARISON: CT dated 11/11/2021. FINDINGS: Lung bases are unremarkable. Heart size normal. No significant pleural or pericardial effus ion. No significant vascular abnormality. No lymphadenopathy. The appendix is persistent leak thicken ed with mild surrounding periappendiceal infiltration. There has been interval removal of percutaneou s drainage catheter. Small amount of residual soft tissue has diminished in size compared with prior study, consistent with resolving phlegmonous change. No definitive residual abscess identified, altho ugh contrast not administered. Nonobstructive bowel gas pattern. No free air. IMPRESSION: 1. Persistently thickened appendix with mild surrounding phlegmonous change which has improved since prior examination. Interval removal of percutaneous drainage catheter in the right lower abdomen. Reviewed, dictated and finalized at location A. IMPRESSION: 1. Persistently thickened appendix with mild surrounding phlegmonous change whi ch has improved since prior examination. Interval removal of percutaneous drain age catheter in the right lower abdomen.
[2021-11-17 16:09] VITALS: BP 167/108; PULSE 82; RESP 18; TEMP 36.8; O2SAT 98
[2021-11-17 16:46] LABS: Basophils Percent Auto 0.3 % (0.2-1.2); Eosinophils Absolute Auto 0.2 K/mm3 (0-0.3); Eosinophils Percent Auto 3.9 % (0-4.4); Hematocrit 39.7 % (42.0-52.0); Hemoglobin 12.7 g/dL (14.0-18.0); Immature Granulocyte Absolute 0.02 K/mm3 (0.00-0.031); Immature Granulocyte Percent A 0.3 % (0-0.5); Lymphocytes Absolute Auto 1.37 K/mm3 (0.9-3.2); Mean Corpuscular Hemoglobin 28.7 pg (26-34); Mean Corpuscular Volume 89.6 fl (80-100); Monocytes Absolute Auto 0.5 K/mm3 (0.1-0.6); Monocytes Percent Auto 7.9 % (2.6-8.5); Neutrophils Absolute Auto 4.1 K/mm3 (1.3-6.7); Neutrophils Percent Auto 65.6 % (45.5-73.1); Platelet Count Result 266 k/mm3 (150-375); Red Blood Count 4.43 M/mm3 (4.6-6.20); Red Cell Distribution Width 13.4 % (11.5-14.5); White Blood Count 6.2 K/mm3 (4.5-10.0)
[2021-11-17 16:56] LABS: Alanine Aminotransferase 42 U/L (6-50); Alkaline Phosphatase 89 U/L (38-126); Anion Gap 9 mmol/L (8-16); Aspartate Amino Transferase 32 U/L (17-59); Bilirubin,Total 0.1 mg/dL (0.2-1.3); Blood Urea Nitrogen 15 mg/dL (9-20); Calcium 8.8 mg/dL (8.4-10.2); Carbon Dioxide 26 mmol/L (22-30); Chloride 106 mmol/L (98-107); Estimated CRCL calculation 87 ml/min; Estimated Glomerular Filt Rate > 60; Glucose 68 mg/dL (65-110); Sodium 141 mmol/L (137-145)
[2021-11-17 16:57] LABS: Appearance Urine Clear (Clear); Bilirubin Urine 1+ (Negative); Blood Urine Negative (Negative); Color Urine Yellow (Yellow); Glucose Urine UA Negative (Negative); Ketones Urine Negative (Negative); Leukocyte Esterase Ur Negative LEU/UL (Negative); Nitrate Urine Negative (Negative); Protein Urine Negative (Negative); Specific Grav Ur >= 1.030 (1.001-1.035); Urobilinogen Urine 0.2 mg/dL (<2.0); pH Urine 5.5 (5.0-9.0)
--- NOTE | 2021-11-17 16:58 | ED.BACK ---
HPI - Back Pain/Injury General Chief Complaint: Back Pain/Injury Stated Complaint: right flank pain Time Seen by Provider: 11/17/21 16:30 History of Present Illness HPI Narrative: 46-year-old male presents here with right lower back pain and right lower quadrant pain, he had had perforated appendix which required antibiotics and drainage several weeks ago, and had been feeling well until about a week ago when he was trying to lift a barrel and started having excruciating pain in his right lower back, he had follow-up with his surgeon, who had done a repeat CT at the time which was essentially negative for any acute abnormalities. Patient is here today because his symptoms have still not improved over the last few days. He denies any fevers at home but he states that he did not have any fevers when he had appendicitis either. Related Data Home Medications Medication Instructions Recorded Confirmed omeprazole 40 mg capsule,delayed 40 mg PO DAILY 12/08/19 11/13/21 release Allergies Allergy/AdvReac Type Severity Reaction Status Date / Time No Known Allergies Allergy Verified 11/17/21 16:16 Review of Systems Review of Systems: CONST: No fever. HEENT: No sore throat C/V: No chest pain RESP: No cough GI: Reports abdominal pain : No dysuria. M/S: Right lower back pain SKIN: No rash. NEURO: [No headache or focal numbness or weakness] PSYCH: [No depression] [facility] Past Medical History Medical History Asthma Cutaneous abscess of right lower extremity Hypertension Surgical History Surgical History History of incision and drainage MRSA abscess right thigh approximately 2009 Family History Family History Mother Depression Asthma Father , Age 37 Unknown No problems noted. Sibling Schizophrenia Social History Social History Smoking status: Never smoker Alcohol intake: current Drinks per week: 21 Alcohol use details: drinks 3 glasses of wine daily Substance use: never Gender identity (if verbalized by the patient): Male Spiritual care concerns: No Exam Narrative: EXAMINATION OF ORGAN SYSTEMS/BODY AREAS: Constitutional: Vital signs per nursing GENERAL:[No acute distress, non-toxic appearing.] Lying comfortably in bed HEAD: Normal with no signs of head trauma. EYES: EOMI, conjunctiva normal ENT: Hearing grossly intact LUNGS: Nonlabored breathing. HEART: [Regular rate and rhythm] ABD: [Soft], [tender to palpation] right lower back, and some to right lower quadrant EXT: Normal range of motion SKIN: [No rashes or lesions.] NEURO: [Alert and oriented x 3. No gross focal sensory or strength deficits.] PSYCH: Normal affect Course Vital Signs Vital signs: Vital Signs Temperature 98.2 F 11/17/21 16:09 Pulse Rate 82 11/17/21 16:09 Respiratory Rate 18 11/17/21 16:09 Blood Pressure 167/108 H 11/17/21 16:09 Pulse Oximetry 98 11/17/21 16:09 Oxygen Delivery Room Air 11/17/21 16:09 Temperature 98.2 F 11/17/21 16:09 Pulse Rate 73 11/17/21 18:48 Respiratory Rate 18 11/17/21 18:48 Blood Pressure 167/106 H 11/17/21 18:48 Pulse Oximetry 97 11/17/21 18:48 Oxygen Delivery Room Air 11/17/21 16:09 MDM - Back Pain/Injury MDM Narrative Medical decision making narrative: 46-year-old male presenting after recent ruptured appendicitis, he still has persistent right lower back/lower quadrant pain for the past week, vital stable here, exam shows some tenderness palpation of the right lower back and abdomen, suspect most likely musculoskeletal pain, but concern for possible worsening of intra-abdominal infection, or kidney stones. Labs unremarkable, CT shows improvement in infection, patient is reassured, he would like to go home at this
[2021-11-17 17:00] LABS: Prothrombin Time 12.6 Seconds (11.1-14.7)
[2021-11-17 17:01] LABS: Partial Thromboplastin Time 26.6 SECONDS (22.3-36.8)
[2021-11-17 17:03] LABS: Mucus Urine Moderate /lpf; RBC Urine 0-2 /hpf (0-2); Squamous Epithelial Cell Urine Rare /hpf (Few); WBC Urine 0-3 /hpf
[2021-11-17 17:04] LABS: Add Urine Microscopic? YES
[2021-11-17 18:36] VITALS: BP 167/106; PULSE 73; RESP 18; O2SAT 97
[2021-11-17 18:48] VITALS: BP 167/106; PULSE 73; RESP 18; O2SAT 97
== END 2021-11-17 18:50 | disposition home or self-care (01) ==
PROVIDERS: Emergency Provider Emergency Medicine; PCP Family Medicine
DX: M54.50 Low back pain, unspecified (principal); R10.31 Right lower quadrant pain; I10 Essential (primary) hypertension
CPT/HCPCS: 36415; 74176; 80053; 81001; 85025; 85610; 85730; 99284

== ENCOUNTER 2022-01-21 11:05 | Day surgery (SDC) | payer OTHER, SELFPAY ==
[2021-12-30 15:04] VITALS: BMI 29.7
[2022-01-03 15:08] VITALS: BMI 29.4
--- NOTE | 2022-01-20 13:44 | WPDANESEPPF ---
Anes - Initial Pre Proc Eval Procedure: Operation Date: 01/21/22 13:00 Proposed Procedures p Colonoscopy, Possible Biopsy, Possible Polypectomy - Toribio Juan MD Date/Time: 01/20/22 13:44 Surgeon: Toribio Juan MD Pre Op Diagnosis: Appendicitis status post rupture Patient Data Age: 46 Gender: M Height: 1.8 m Weight: 95.7 kg Allergies Allergy/AdvReac Type Severity Reaction Status Date / Time No Known Allergies Allergy Verified 01/21/22 11:26 Home Medications Medication Instructions Recorded Confirmed Type omeprazole 40 mg capsule,delayed 40 mg PO DAILY 12/08/19 01/21/22 History release rosuvastatin 5 mg tablet 5 mg PO DAILY #30 tabs 11/15/21 01/21/22 Rx methocarbamol 750 mg tablet 750 mg PO TID #14 tabs 11/17/21 01/21/22 Rx lorazepam 0.5 mg tablet 0.5 mg PO DAILY PRN anxiety #30 12/19/21 01/21/22 Rx tabs lisinopril 10 mg tablet 20 mg PO DAILY 01/03/22 01/21/22 History Patient hx anesthesia problems: none Family hx anesthesia problems: none Results Review: All pre-operative results and documents have been reviewed as part of the pre-operative evaluation. [facility] Past Medical History Medical History Asthma Bipolar disorder Cutaneous abscess of right lower extremity Hypertension Panic disorder Surgical History Surgical History History of incision and drainage MRSA abscess right thigh approximately 2009 Family History Family History Mother Depression Asthma Father , Age 37 Unknown No problems noted. Sibling Schizophrenia Social History Social History Smoking status: Never smoker Alcohol intake: current Drinks per week: 21 Alcohol use details: drinks 3 glasses of wine daily Substance use: never Substance use type: does not use Living arrangements: with family Gender identity (if verbalized by the patient): Male Spiritual care concerns: No Anes - Eval Final PreProcedure Day of Procedure 01/20/22 13:44 Patient weight: overweight Heart: regular rate and rhythm Lungs: clear to auscultation Airway: Mallampati scale class II Neurological: alert and oriented Last oral intake: >/= 8 hours ASA classification: III Emergent: no Anesthetic plan: proceed Anesthesia type and monitoring: general GIVS and standard monitoring Results Review: All pre-operative results and documents have been reviewed as part of the pre-operative evaluation. Informed Consent: The patient's anesthetic plan and its attendant risks and benefits were discussed with the patient/family/POA. Questions were solicited and answers provided to the satisfaction of the patient/family/POA.
--- NOTE | 2022-01-20 21:05 | PM.HPGS ---
History of Present Illness History of Present Illness Consent: Risks, benefits, and alternatives have been discussed and questions answered. Patient agrees to proceed with procedure. Chief complaint: Appendicitis status post rupture Narrative: Kyle Scanlon is a 46 year old male patient who had a follow up CT scan of the abdomen and pelvis with contrast on 11/11/21 that showed near complete resolution of phlegmonous change/abscess in the right lower abdomen post drain placement. This had been in place because of a ruptured acute appendicitis with abscess fromation. Punctate non-obstructive bilateral nephrolithiasis was also noted. There was a thickened appendix, consistent with appendicitis. Patient reports that he is doing well since his last office appointment in regards to this appendix. He reports he does have back pain he is taking Hydrocodone for. He reports that he was moving a burn barrel and strained his back. He describes this pain as lower back pain and it is more on the right side than the left but not by much. He denies having any trouble with urination. He reports he has finished the antibiotics as prescribed. He reports since he has stopped the antibiotics he has noticed he is not having diarrhea anymore. Denies having any fevers since stopping the antibiotics. The patient presents for a screening colonoscopy to a possible interval appendectomy. He will soon be age 47 has never had a colonoscopy in the past. Review of Systems Review of Systems: All systems reviewed & are unremarkable except as noted in HPI and below (HPI) Constitutional: Constitutional: Reports as per HPI, Denies chills and Denies fever(s) Eyes: Eyes: Reports no additional eye complaints ENT: Reports Normal hearing present and Denies dizziness Cardiovascular: Cardiovascular: Reports no additional cardiovascular complaints, Denies chest pain and Denies irregular heart rhythm Respiratory: Respiratory: Reports no additional respiratory complaints Gastrointestinal: Gastrointestinal: Reports no additional gastrointestinal complaints, Denies abdominal pain and Denies bloating Comments: history of recent perforated appendicitis abscesses treated with antibiotics and CT-guided drainage (he is October 2021). previous history of colonoscopy. History of longstanding GERD. On PPI. Genitourinary: Genitourinary: Denies hematuria Musculoskeletal: Musculoskeletal: Denies back pain Integumentary/Breasts: Skin/Breast: Reports system reviewed and no additional complaints, except as docu Comments: History of MRSA abscess in 2019 status post incision drainage on 1 leg. Neurologic: Reports Normal hearing present, Denies Abnormal speech present, Denies confusion and Denies dizziness Psychiatric: Psychiatric: Reports no additional psychiatric complaints and Denies confusion Comments: history of depression on medication. Endocrine: Endocrine: Reports no additional endocrine complaints Hematologic/Lymphatic: Hematologic/Lymphatic: Denies easy bleeding and Denies easy bruising Allergic/Immunologic: Allergic/Immunologic: Reports no additional allergic/immunologic complaints PMFSH Past Medical History Medical History Asthma Bipolar disorder Cutaneous abscess of right lower extremity Hypertension Panic disorder Surgical History Surgical History History of incision and drainage MRSA abscess right thigh approximately 2009 Family History Family History Mother Depression Asthma Father , Age 37 Unknown No problems noted. Sibling Schizophrenia Social History Social History Smoking status: Never smoker Alcohol intake: current Drinks per week: 21 Alcohol use details: drinks 3 glasses of wine daily Subs
[2022-01-21 11:20] VITALS: BP 138/103; PULSE 71; RESP 16; TEMP 36.8; O2SAT 100
[2022-01-21 11:27] VITALS: BMI 29.0
[2022-01-21] MEDS: LACTATED RINGERS 1,000 ML 30 ML IV CONT (11:40)
--- NOTE | 2022-01-21 13:04 | WPDHPUPDATE1 ---
History and Physical Update Update Date/Time: 01/21/22 13:04 History and Physical has been reviewed, including an updated exam of the patient. There are NO changes in the patient's condition. Risks, benefits, and alternatives have been discussed and questions answered. Patient agrees to proceed with procedure.
[2022-01-21 13:54] VITALS: BP 95/65; PULSE 69; RESP 20; O2SAT 98
[2022-01-21 14:04] VITALS: BP 111/89; PULSE 72; RESP 20; O2SAT 100
[2022-01-21 14:13] VITALS: BP 122/99; PULSE 68; RESP 18; O2SAT 99
--- NOTE | 2022-01-22 07:48 | WPDANESPN ---
Anes - Prog Note Post-Op Date/Time: 01/21/22 14:00 Vital Signs: Last Vital Signs Temp 36.8 C 01/21/22 11:20 Pulse 68 01/21/22 14:13 Resp 18 01/21/22 14:13 BP 122/99 H 01/21/22 14:13 Pulse Ox 99 01/21/22 14:13 O2 Del Method Room Air 01/21/22 14:13 Pain Score (VAS): 0 I/O: Intake & Output 01/21/22 01/21/22 01/22/22 15:59 23:59 07:59 Intake Total 75 Balance 75 Patient Feedback: Patient satisfied with anesthetic care.
== END 2022-01-21 14:31 | disposition home or self-care (01) ==
PROVIDERS: PCP Family Medicine; Visit Provider Surgery
PROC: 0DJD8ZZ Inspection of Lower Intestinal Tract, Via Natural or Artificial Opening Endoscopic (ICD-10-PCS; CPT 45378; principal; 2022-01-21 13:00)
DX: Z12.11 Encounter for screening for malignant neoplasm of colon (principal)
CPT/HCPCS: 45378

== ENCOUNTER 2022-03-05 09:58 | Outpatient (CLI) | payer OTHER, SELFPAY ==
[2022-03-05 10:35] LABS: Anion Gap 11 mmol/L (8-16); Blood Urea Nitrogen 13 mg/dL (9-20); Calcium 8.7 mg/dL (8.4-10.2); Carbon Dioxide 25 mmol/L (22-30); Chloride 104 mmol/L (98-107); Estimated Glomerular Filt Rate > 60; Glucose 77 mg/dL (65-110); Potassium 4.7 mmol/L (3.4-5.0); Sodium 140 mmol/L (137-145)
== END 2022-03-05 09:59 | disposition home or self-care (01) ==
LOC: ANHSURGERY 10:02
PROVIDERS: PCP Family Medicine Sports Medicine; Visit Provider Surgery
DX: K35.33 Acute appendicitis with perforation, localized peritonitis, and gangrene, with abscess (principal)
CPT/HCPCS: 36415; 80048

== ENCOUNTER 2022-03-10 00:36 | Day surgery (SDC) | payer OTHER, SELFPAY ==
[2022-03-04 11:54] VITALS: BMI 29.5
--- NOTE | 2022-03-04 12:05 | PC.NURSE ---
Report to the Outpatient Waiting Room, entrance under the green pavilion located off [facility], at time 10:00 on date 03/10/22. OR Time: 12:00. Time changes happen often and if your time is changed the preop area will call you the afternoon before. - You and your visitor will be asked to self-screen and do not enter if you have any COVID symptoms. - Only one visitor and NO children visitors are allowed at this time. - The patient visitor is requested to leave or wait in car when not with patient due to restrictions. - A mask is required within the hospital. Patients may have clear liquids (water, carbonated beverages, clear teas, apple juice) until 3 hours prior to surgery (9:00) with a maximum of 20 ounces. - No food from midnight until time of surgery Take the following medications with a SIP of water the morning of surgery: BUSPIRONE, LORAZEPAM IF NEEDED Medications to discontinue per physician: VITAMINS Date to take last dose: 03/06/22 Please no make-up, nail malian, hairspray, perfume, deodorant, or body powder the day of surgery. No jewelry (including any body piercings) or valuables the day of surgery, leave them at home. Please take a shower or bath the night before, or the morning of, surgery with an antibacterial soap (HIBICLENS). Wear comfortable, loose fitting clothing. - Jewelry must be removed prior to entering the operating room. Rings and piercings that are not removed may be cut off. - The hospital will not accept responsibility for valuables. - Please leave all valuables, including medications, at home the day of surgery. If you are going home after surgery, a licensed driver/merchandiser must drive you home. - NO public transportation without another adult. - We recommend that an adult stay with you for 24 hours following discharge. - We also recommend that you do not drive, make important decision, drink alcoholic beverages, or take any drugs that were not prescribed by your health care provider for at least 24 hours after your discharge time. Follow any additional instructions given to you from your surgeon. If you or anyone in your household have experienced Covid symptoms in the past week, please notify your surgeon or the nurse liaison at the phone number below for possible testing. Telephone instructions given to PT - ZONIA OCAMPO and asked if any additional questions and then verbalized understanding. Patient advised to call surgeon office or pre surgery nurse liaison [phone] if any additional questions.
--- NOTE | 2022-03-09 14:51 | PM.HPGS ---
History of Present Illness History of Present Illness Consent: Risks, benefits, and alternatives an interval laparoscopic appendectomy, possible open appendectotmy have been discussed and questions answered. Patient agrees to proceed with procedure. Chief complaint: perforated appendicitis with abscess Narrative: Kyle Scanlon is a 47 year old white male who in October of this year developed perforated appendicitis with abscesses prior to presenting to the hospital. He was treated with antibiotics and percutaneous drainage by CT guidance. Subsequently he had an outpatient colonoscopy after recovery from the above. We did not see any abnormalities within the cecum or at the appendiceal opening. Therefore, it is suspected that he had standard appendicitis but chose to proceed with an interval appendectomy in order to avoid future problems with same problem. It has been now more than 8 weeks since his episode of acute appendicitis with perforation. Therefore, at this time we are planning to proceed with an interval appendectomy laparoscopically if possible. He knows that we may need to convert to an open procedure. Review of Systems Review of Systems: Constitutional: Constitutional: Reports no additional constitutional complaints and Denies frequent falls ENT: Reports Normal hearing present, Denies dizziness and Reports other (Mucous membranes moist.) Cardiovascular: Cardiovascular: Denies chest pain, Denies palpitations, Denies dyspnea and Denies dyspnea on exertion Comments: History of hypertension on lisinopril Respiratory: Respiratory: Denies hemoptysis, Denies dyspnea, Denies dyspnea on exertion and Denies wheezing Comments: History of mild asthma that he only occasionally uses Primatene mist for. Gastrointestinal: Gastrointestinal: Reports no additional gastrointestinal complaints Comments: history of GERD and has been taking [id number] Prilosec to 20 mg tablets once a day. However, he reports that even a month or 2 ago he had vomiting as often as 3 times per week with this. Genitourinary: Genitourinary: Denies hematuria, Denies nocturia and Denies urinary frequency Musculoskeletal: Musculoskeletal: Denies deformity and Reports other ( no clubbing,cyanosis, or edema) Integumentary/Breasts: Skin/Breast: Denies new lesions, Denies rash and Denies unusual bruising Neurologic: Reports Normal hearing present, Denies dizziness, Denies frequent falls, Denies memory loss and Denies seizure-like activity Psychiatric: Psychiatric: Reports anxiety, Denies memory loss and Reports other (Otherwise normal mood and mental status) Comments: Patient deals with problems with anxiety therefore was on Seroquel and Buspirone. these were stopped recently and his PCP was trying a new 1 as listed on his record. Then because of possible side effects it was also stopped. So for the last several days he has not taken anything for this other than occasional lorazepam. Endocrine: Endocrine: Denies cold intolerance and Denies palpitations Hematologic/Lymphatic: Hematologic/Lymphatic: Denies easy bleeding and Denies easy bruising Allergic/Immunologic: Allergic/Immunologic: Denies wheezing and Reports other ( no lymphadenopathy) [facility] Past Medical History Medical History (Updated 03/10/22 @ 08:10 by Mauro Cruz MD) Anxiety Asthma Bipolar disorder BMI 29.0-29.9,adult Cutaneous abscess of right lower extremity ETOH abuse GERD (gastroesophageal reflux disease) Hypertension Nephrolithiasis Panic disorder Surgical History Surgical History H/O colonoscopy /p colonoscopy w/ poss bx or polypectomy History of incision and drainage MRSA abscess right thigh approximately 2009 Family History Family History Mother Depression Asthma Father , Age 37 Unknown No problems noted. Sibling
[2022-03-10] VITALS (8 sets, daily range): BP systolic 142–164; BP diastolic 85–98; PULSE 53–72; RESP 11–18; TEMP 36–36.7; O2SAT 96–100
--- NOTE | 2022-03-10 08:08 | WPDANESEPPF ---
Anes - Initial Pre Proc Eval Procedure: Operation Date: 03/10/22 12:00 Proposed Procedures p Laparoscopic Interval Appendectomy, Possible Open - Toribio Juan MD Date/Time: 03/10/22 08:08 Surgeon: Toribio Juan MD Pre Op Diagnosis: perforated appendicitis with abscess Patient Data Age: 47 Gender: M Height: 1.8 m Weight: 96.16 kg Allergies Allergy/AdvReac Type Severity Reaction Status Date / Time No Known Allergies Allergy Verified 03/04/22 11:52 Home Medications Medication Instructions Recorded Confirmed Type omeprazole 40 mg capsule,delayed 40 mg PO DAILY 12/08/19 03/04/22 History release rosuvastatin 5 mg tablet 5 mg PO DAILY #30 tabs 11/15/21 03/04/22 Rx lorazepam 0.5 mg tablet 0.5 mg PO DAILY PRN anxiety #30 12/19/21 03/04/22 Rx tabs lisinopril 10 mg tablet 20 mg PO DAILY 01/03/22 03/04/22 History buspirone 30 mg tablet 30 mg PO BID 03/04/22 03/04/22 History multivitamin 1 tablet PO DAILY 03/04/22 03/04/22 History Patient hx anesthesia problems: none Family hx anesthesia problems: none Results Review: All pre-operative results and documents have been reviewed as part of the pre-operative evaluation. [facility] Past Medical History Medical History (Updated 03/10/22 @ 08:10 by Mauro Cruz MD) Anxiety Asthma Bipolar disorder BMI 29.0-29.9,adult Cutaneous abscess of right lower extremity ETOH abuse GERD (gastroesophageal reflux disease) Hypertension Nephrolithiasis Panic disorder Surgical History Surgical History H/O colonoscopy /p colonoscopy w/ poss bx or polypectomy History of incision and drainage MRSA abscess right thigh approximately 2009 Family History Family History Mother Depression Asthma Father , Age 37 Unknown No problems noted. Sibling Schizophrenia Social History Social History Smoking status: Never smoker Alcohol intake: current Drinks per week: 20 Alcohol use details: 2-3 GLASSES OF WINE/NIGHT Substance use: never Substance use type: does not use Living arrangements: with family Gender identity (if verbalized by the patient): Male Spiritual care concerns: No Anes - Eval Final PreProcedure Day of Procedure 03/10/22 08:08 Patient weight: overweight Heart: regular rate and rhythm Lungs: clear to auscultation Airway: Mallampati scale class II Neurological: alert and oriented Last oral intake: >/= 8 hours ASA classification: III Emergent: no Anesthetic plan: proceed Anesthesia type and monitoring: general ETT and standard monitoring Results Review: All pre-operative results and documents have been reviewed as part of the pre-operative evaluation. Informed Consent: The patient's anesthetic plan and its attendant risks and benefits were discussed with the patient/family/POA. Questions were solicited and answers provided to the satisfaction of the patient/family/POA.
[2022-03-10] MEDS: LACTATED RINGERS 1,000 ML 30 ML IV CONT ×2 (10:30→14:05)
--- NOTE | 2022-03-10 11:55 | WPDHPUPDATE1 ---
History and Physical Update Update Date/Time: 03/10/22 11:55 History and Physical has been reviewed, including an updated exam of the patient. There are changes in the patient's condition. The pt states that he has had a little pain occasionally in the RLQ of the abdomen for the last few days. He has had no fever or other changes. Risks, benefits, and alternatives have been discussed and questions answered. Patient agrees to proceed with procedure.
[2022-03-10] MEDS: BUPIVACAINE/EPINEPHRINE 0.25% 50 ML VIAL INFILTRATE (12:19)
[2022-03-10] MEDS: KETOROLAC 30 MG/ML VIAL (*BKC) IV PUSH (13:42)
--- NOTE | 2022-03-10 14:13 | W.PM.PROC2 ---
Procedure Note - Detailed Date of Procedure 03/10/22 Pre-op Diagnosis History perforated appendicitis with abscess 10/2021 Post-op Diagnosis Same Procedure Performed Interval laparoscopic appendectomy Surgeon Toribio Juan MD In Service Educator Giulia FRANK. OR Multiplex Operator Anesthesia General Indications Patient is a 47-year-old white male who in October of this year presented with perforated appendicitis and abscesses. This was treated with percutaneous drainage and antibiotics. He recovered nicely. He subsequently had a colonoscopy which revealed no obvious masses within the cecum or elsewhere in the colon. However, he would like to know that he will not have to go through what he did earlier again. Therefore, I proposed an interval appendectomy to him. I explained this and he wanted to proceed. Findings A non inflamed or chronically inflamed retrocecal appendix densely adhered to the right lateral abdominal wall and psoas muscle behind it. No signs of current infection or abscess. Two small possible diverticuli coming off the appendix. Description of Procedure The patient was seen in the Holding Room of the pre-op area. The risks, benefits, complications, treatment options, and expected outcomes were discussed with the patient and/or family. The possibilities of reaction to medication, pulmonary aspiration, perforation of viscus, bleeding, recurrent infection, finding a normal appendix, the need for additional procedures, failure to diagnose a condition, and creating a complication requiring transfusion or operation were discussed. There was concurrence with the proposed plan and informed consent was obtained. The site of surgery was properly noted/marked. The patient was taken to Operating Room, and a time out was preformed which identified this as the proper patient, and the procedure verified as an interval laparoscopic appendectomy, possible open. The patient was placed in the supine position and general anesthesia was induced, along with placement of an orogastric tube, SCD hose, and a Lockwood catheter. The abdomen was prepped and draped in a sterile fashion. A 5 mm umbilical incision was made and the peritoneal cavity was accessed using the Veress needle technique. Once the abdomen was insufflated to 14 mmHg pressure a 5 mm XL trocar over the 0? 5 mm scope was carefully twisted into the abdomen via the umbilicus. The pneumoperitoneum was then established to steady pressure of 14 mm Hg. A 12 mm laparoscopic port was placed through a transverse suprapubic incision. An additional 5 mm cannula was then placed in in the left upper quadrant at the level senior living between the left costal margin and the umbilicus under direct vision. A careful evaluation of the entire abdomen was carried out. The patient was placed in Trendelenburg and left lateral decubitus position. The small intestines were retracted in the cephalad and left lateral direction away from the pelvis and right lower quadrant. The patient was found to have an enlarged and inflamed appendix that was extending [into the retrocecal position between the back of the cecum and the retroperitoneum and right abdominal sidewall. Was no evidence of perforation. The proximal 3rd of the appendix appeared fairly normal however the distal 2/3 was densely adhered with chronic inflammation or thick residual scarring to the retroperitoneum. I spent approximately 30-45 minutes carefully dissecting this off the retroperitoneum and right abdominal sidewall using a combination of blunt and sharp dissection. Several unfolded 4x4s were placed into the abdomen to soak up some bloody oozing and also to use as the sponge stick like instrument to help try to separate the thickened distal appendix from its surrounding chronic fibrotic change. Laterally and posteriorly the appendix and the mesoappendix seemed to be densely adherent to the retroperitoneum. Once I had gotten it fairly well dissected circumferentially, but it was
[2022-03-10] MEDS: ONDANSETRON INJ 4 MG/2 ML VIAL IV PUSH ×2 (14:21→16:05)
[2022-03-10] MEDS: fentaNYL CITRATE INJ (*CRX) 100 MCG/2 ML VIAL 25 MCG IV PUSH ×4 (14:23→14:44)
== END 2022-03-10 16:23 | disposition home or self-care (01) ==
PROVIDERS: PCP Family Medicine Sports Medicine; Visit Provider Surgery
PROC: 0DTJ4ZZ Resection of Appendix, Percutaneous Endoscopic Approach (ICD-10-PCS; CPT 44970; principal; 2022-03-10 12:00)
DX: K38.8 Other specified diseases of appendix (principal); I10 Essential (primary) hypertension; K21.9 Gastro-esophageal reflux disease without esophagitis; J45.909 Unspecified asthma, uncomplicated; F41.9 Anxiety disorder, unspecified; F31.9 Bipolar disorder, unspecified
CPT/HCPCS: 44970; 88304; J1100; J1170; J1885; J2250; J2405; J2704; J2710; J3010; J7030; J7120

== ENCOUNTER 2022-04-11 16:03 | Emergency (ER) | payer OTHER, SELFPAY ==
[2022-04-11] VITALS (8 sets, daily range): BP systolic 149–175; BP diastolic 84–107; PULSE 69–76; RESP 16; TEMP 36.8; O2SAT 97–100
--- NOTE | ~2022-04-11 | XR_ITS ---
EXAMINATION: XR chest 2V DATE: 04/11/2022 16:49 INDICATION: Chest pain. TECHNIQUE: Frontal and lateral views of the chest were obtained. COMPARISON: Chest 2 views 07/05/2021, CT abdomen and pelvis 11/17/2021 FINDINGS: There is mild atelectasis at left lung base. No pleural effusion or pneumothorax. The heart size is normal. There is mild chronic anterior wedging of multiple midthoracic vertebral bodies. IMPRESSION: 1. Mild atelectasis at left lung base. Reviewed, dictated and finalized at location A.
--- NOTE | 2022-04-11 16:04 | ECG_ITS ---
Measurements Intervals [place] Rate: 75 P: 46 PA: 151 QRS: 20 QRSD: 93 T: 38 QT: 373 QTc: 418 Interpretive Statements SINUS RHYTHM POSSIBLE LEFT ATRIAL ENLARGEMENT [-0.1mV P WAVE IN V1/V2] COMPARED TO ECG 07/05/2021 04:57:56 NO SIGNIFICANT CHANGES Electronically Signed On 04-12-2022 8:52:27 CDT by Gabby Huang M.D.
[2022-04-11 16:31] LABS: Basophils Percent Auto 0.3 % (0.2-1.2); Eosinophils Absolute Auto 0.2 K/mm3 (0-0.3); Eosinophils Percent Auto 2.4 % (0-4.4); Hematocrit 41.8 % (42.0-52.0); Hemoglobin 14.4 g/dL (14.0-18.0); Immature Granulocyte Absolute 0.03 K/mm3 (0.00-0.031); Immature Granulocyte Percent A 0.4 % (0-0.5); Lymphocytes Absolute Auto 0.73 K/mm3 (0.9-3.2); Lymphocytes Percent Auto 9.5 % (18.3-44.2); Mean Corpuscular HGB Conc 34.4 g/dl (32-36); Mean Corpuscular Hemoglobin 29.9 pg (26-34); Mean Corpuscular Volume 86.9 fl (80-100); Mean Platelet Volume 9.6 fl (7.4-10.4); Monocytes Absolute Auto 0.6 K/mm3 (0.1-0.6); Neutrophils Absolute Auto 6.1 K/mm3 (1.3-6.7); Neutrophils Percent Auto 79.4 % (45.5-73.1); Platelet Count Result 224 k/mm3 (150-375); Red Blood Count 4.81 M/mm3 (4.6-6.20); Red Cell Distribution Width 12.9 % (11.5-14.5); White Blood Count 7.7 K/mm3 (4.5-10.0)
[2022-04-11 16:35] LABS: Add Urine Microscopic? NO; Appearance Urine Clear (Clear); Bilirubin Urine Negative (Negative); Blood Urine Negative (Negative); Color Urine Colorless (Yellow); Glucose Urine UA Negative (Negative); Ketones Urine Negative (Negative); Leukocyte Esterase Ur Negative LEU/UL (Negative); Nitrate Urine Negative (Negative); Protein Urine Negative (Negative); Urobilinogen Urine Negative mg/dL (<2.0)
[2022-04-11 16:37] LABS: Specific Grav Ur 1.001 (1.001-1.035)
[2022-04-11 16:41] LABS: Alanine Aminotransferase 41 U/L (6-50); Albumin Level 4.7 g/dL (3.5-5.1); Alkaline Phosphatase 99 U/L (38-126); Anion Gap 12 mmol/L (8-16); Aspartate Amino Transferase 45 U/L (17-59); Bilirubin,Total 0.5 mg/dL (0.2-1.3); Blood Urea Nitrogen 12 mg/dL (9-20); Calcium 9.2 mg/dL (8.4-10.2); Carbon Dioxide 23 mmol/L (22-30); Chloride 104 mmol/L (98-107); Estimated CRCL calculation 88 ml/min; Estimated Glomerular Filt Rate > 60; Glucose 108 mg/dL (65-110); Lipase 210 U/L (23-300); Potassium 4.4 mmol/L (3.4-5.0); Prothrombin Time 12.7 Seconds (11.1-14.7); Sodium 139 mmol/L (137-145)
[2022-04-11 16:52] LABS: Troponin I < 0.012 ng/mL (0.000-0.034)
[2022-04-11 19:43] LABS: Troponin I < 0.012 ng/mL (0.000-0.034)
--- NOTE | 2022-04-11 20:07 | ED.GENADULT ---
HPI - General Adult General Chief complaint: Unspecified <ENRA Molina Last Filed: 04/12/22 01:51> Stated complaint: cp, sob <ERNA Molina Last Filed: 04/12/22 01:51> Time Seen by Provider: 04/11/22 19:57 <ERNA Molina Last Filed: 04/12/22 01:51> Source: patient <ERNA Molina Last Filed: 04/12/22 01:51> Mode of arrival: ambulatory <ERNA Molina Last Filed: 04/12/22 01:51> Limitations: no limitations <ERNA Molina Last Filed: 04/12/22 01:51> History of Present Illness HPI narrative: Patient is a 47 y/o male who presents to the ED with multiple complaints. Patient reports he first developed a sore throat and headache on Thursday. He also reports having congestion, rhinorrhea, mild cough, myalgias, occasional shortness of breath, chest tightness. Denies any known fever, nausea, vomiting, abdominal pain, chest pain, pleuritic pain. Patient is vaccinated for COVID. Patient mentions his lisinopril dose was increased yesterday to 40 mg daily. <ERNA Molina Last Filed: 04/12/22 01:51> Related Data Home medications: Home Medications Medication Instructions Recorded Confirmed omeprazole 40 mg capsule,delayed 40 mg PO DAILY 12/08/19 03/10/22 release lisinopril 10 mg tablet 20 mg PO DAILY 01/03/22 03/10/22 buspirone 30 mg tablet 30 mg PO BID 03/04/22 03/10/22 multivitamin 1 tablet PO DAILY 03/04/22 03/10/22 <ERNA Molina Last Filed: 04/12/22 01:51> Allergies/adverse reactions: Allergies Allergy/AdvReac Type Severity Reaction Status Date / Time No Known Allergies Allergy Verified 03/26/22 08:34 <ERNA Molina Last Filed: 04/12/22 01:51> Review of Systems Review of Systems: CONSTITUTIONAL: Denies fever, chills, or sweats. ENT: Reports rhinorrhea, congestion, sore throat. CARDIOVASCULAR: Reports chest tightness. Denies chest pain. RESPIRATORY: Reports cough and dyspnea. Denies pleuritic pain. GASTROINTESTINAL: Denies abdominal pain, nausea, vomiting, or diarrhea. MUSCULOSKELETAL: Reports myalgias. NEUROLOGIC: Reports headache. <Emily Bustillo PA-C - Last Filed: 04/12/22 01:51> All systems reviewed & are unremarkable except as noted in HPI and below <Emily Bustillo PA-C - Last Filed: 04/12/22 01:51> [facility] Past Medical History Medical History: Medical History Anxiety Asthma Bipolar disorder BMI 29.0-29.9,adult Cutaneous abscess of right lower extremity ETOH abuse GERD (gastroesophageal reflux disease) Hypertension Nephrolithiasis Panic disorder <Emily Bustillo PA-C - Last Filed: 04/12/22 01:51> Surgical History Surgical History: Surgical History (Updated 04/11/22 @ 21:05 by Emily Bustillo PA-C) H/O colonoscopy /p colonoscopy w/ poss bx or polypectomy History of appendectomy History of incision and drainage MRSA abscess right thigh approximately 2009 <Emily Bustillo PA-C - Last Filed: 04/12/22 01:51> Family History Family History: Family History Mother Depression Asthma Father , Age 37 Unknown No problems noted. Sibling Schizophrenia <Emily Bustillo PA-C - Last Filed: 04/12/22 01:51> Social History Social History: Social History Smoking status: Never smoker Alcohol intake: current Drinks per week: 20 Alcohol use details: 2-3 GLASSES OF WINE/NIGHT Substance use: never Substance use type: does not use Gender identity (if verbalized by the patient): Male Spiritual care concerns: No <Emily Bustillo PA-C - Last Filed: 04/12/22 01:51> Exam Narrative: GENERAL: Well appearing, obese, non-toxic, in no acute distress. HEA
[2022-04-11] MEDS: SODIUM CHLORIDE 0.9% IV 1,000 ML 999 ML IV CONT (20:43)
[2022-04-11 21:06] LABS: D Dimer < 0.27 ug/mL (<0.48)
[2022-04-11 21:28] LABS: SARS-CoV-2 RNA PCR Negative
[2022-04-11 22:39] LABS: Troponin I < 0.012 ng/mL (0.000-0.034)
== END 2022-04-11 23:41 | disposition home or self-care (01) ==
PROVIDERS: Emergency Medicine; Physician Assistant; Emergency Provider Emergency Medicine
DX: J06.9 Acute upper respiratory infection, unspecified (principal); F31.9 Bipolar disorder, unspecified; K21.9 Gastro-esophageal reflux disease without esophagitis; I10 Essential (primary) hypertension; Z20.822 Contact with and (suspected) exposure to COVID-19
CPT/HCPCS: 36415; 71046; 80053; 81003; 83690; 84484; 85025; 85380; 85610; 85730; 93005; 96361; 96365; 99284; C9803; J0131; J7030; U0003; U0005

== ENCOUNTER 2023-02-12 10:41 | Emergency (ER) | payer BC, SELFPAY ==
[2023-02-12] VITALS (27 sets, daily range): BP systolic 132–154; BP diastolic 86–104; PULSE 60–80; RESP 14–20; TEMP 36.6; O2SAT 100
--- NOTE | ~2023-02-12 | XR_ITS ---
EXAMINATION: XR chest 2V DATE: 02/12/2023 11:05 INDICATION: Centralized chest pain and shortness of breath TECHNIQUE: Frontal and lateral views of the chest are obtained COMPARISON: 04/11/2022 FINDINGS: The lungs are free of acute opacities. No pleural effusion or pneumothorax. The cardiomedia stinal silhouette is normal. There is mild thoracic spondylosis. IMPRESSION: 1. No acute cardiopulmonary abnormality. Reviewed, dictated and finalized at location A.
--- NOTE | 2023-02-12 10:43 | ECG_ITS ---
Measurements Intervals [place] Rate: 71 P: 42 FL: 153 QRS: 10 QRSD: 106 T: 31 QT: 365 QTc: 397 Interpretive Statements SINUS RHYTHM POSSIBLE LEFT ATRIAL ENLARGEMENT [-0.1mV P WAVE IN V1/V2] COMPARED TO ECG 04/11/2022 16:08:30 NO SIGNIFICANT CHANGES Electronically Signed On 02-12-2023 11:03:39 CDT by Harry Key M.D.
[2023-02-12] MEDS: ASPIRIN 81 MG CHEWABLE TABLET 324 MG PO (11:48)
[2023-02-12 12:01] LABS: Basophils Percent Auto 0.5 % (0.2-1.2); Eosinophils Absolute Auto 0.1 K/mm3 (0-0.3); Eosinophils Percent Auto 1.8 % (0-4.4); Hematocrit 31.8 % (42.0-52.0); Hemoglobin 10.9 g/dL (14.0-18.0); Immature Granulocyte Absolute 0.02 K/mm3 (0.00-0.031); Immature Granulocyte Percent A 0.5 % (0-0.5); Lymphocytes Absolute Auto 0.87 K/mm3 (0.9-3.2); Lymphocytes Percent Auto 19.7 % (18.3-44.2); Mean Corpuscular HGB Conc 34.3 g/dl (32-36); Mean Corpuscular Hemoglobin 29.9 pg (26-34); Mean Corpuscular Volume 87.1 fl (80-100); Mean Platelet Volume 9.2 fl (7.4-10.4); Monocytes Absolute Auto 0.3 K/mm3 (0.1-0.6); Monocytes Percent Auto 7.2 % (2.6-8.5); Neutrophils Absolute Auto 3.1 K/mm3 (1.3-6.7); Neutrophils Percent Auto 70.3 % (45.5-73.1); Platelet Count Result 208 k/mm3 (150-375); Red Blood Count 3.65 M/mm3 (4.6-6.20); Red Cell Distribution Width 11.8 % (11.5-14.5); White Blood Count 4.4 K/mm3 (4.5-10.0)
[2023-02-12 12:11] LABS: Alanine Aminotransferase 46 U/L (6-50); Albumin Level 4.5 g/dL (3.5-5.1); Alkaline Phosphatase 73 U/L (38-126); Anion Gap 3 mmol/L (8-16); Aspartate Amino Transferase 32 U/L (17-59); Bilirubin,Total 0.4 mg/dL (0.2-1.3); Blood Urea Nitrogen 18 mg/dL (9-20); Calcium 9.3 mg/dL (8.4-10.2); Carbon Dioxide 25 mmol/L (22-30); Chloride 103 mmol/L (98-107); Estimated CRCL calculation 89 ml/min; Estimated Glomerular Filt Rate > 60; Glucose 97 mg/dL (65-110); INR 0.9; Lipase 240 U/L (23-300); Potassium 4.4 mmol/L (3.4-5.0); Prothrombin Time 12.8 Seconds (11.1-14.7); Sodium 131 mmol/L (137-145)
[2023-02-12 12:23] LABS: Troponin I < 0.012 ng/mL (0.000-0.034)
--- NOTE | 2023-02-12 13:12 | ED.GENADULT ---
[facility] - General Adult General Chief complaint: Chest Pain Stated complaint: chest pain Time Seen by Provider: 02/12/23 11:29 Source: patient Mode of arrival: ambulatory Limitations: no limitations History of Present Illness HPI narrative: This is a 47-year-old male who presents to the ED with chief complaint of chest pain beginning this morning while at work. 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 He started to feel short of breath and had substernal chest pain. States he also started to feel a little lightheaded but did not have any syncope. Denies nausea or vomiting at this time. He felt like symptoms were worsened a little bit with exertion. Denies any previous cardiac history. He states he has had chest pain in the past with anxiety, and reports today felt similar. He took a lorazepam with minimal relief so he came here. He states he has been feeling very stressed with family members being sick and with his work. Denies cough, hemoptysis, history of blood clots, family cardiac history, fevers, chills, recent illness, abdominal pain. Related Data Home Medications Medication Instructions Recorded Confirmed omeprazole 40 mg capsule,delayed 40 mg PO DAILY 12/08/19 03/10/22 release lisinopril 10 mg tablet 20 mg PO DAILY 01/03/22 03/10/22 buspirone 30 mg tablet 30 mg PO BID 03/04/22 03/10/22 multivitamin 1 tablet PO DAILY 03/04/22 03/10/22 Allergies Allergy/AdvReac Type Severity Reaction Status Date / Time No Known Allergies Allergy Verified 03/26/22 08:34 Review of Systems Review of Systems: All systems as dictated in [facility] Past Medical History Medical History Anxiety Asthma Bipolar disorder BMI 29.0-29.9,adult Cutaneous abscess of right lower extremity ETOH abuse GERD (gastroesophageal reflux disease) Hypertension Nephrolithiasis Panic disorder Surgical History Surgical History (Updated 04/11/22 @ 21:05 by Emily Bustillo PA-C) H/O colonoscopy /p colonoscopy w/ poss bx or polypectomy History of appendectomy History of incision and drainage MRSA abscess right thigh approximately 2009 Family History Family History Mother Depression Asthma Father , Age 37 Unknown No problems noted. Sibling Schizophrenia Social History Social History Smoking status: Never smoker Alcohol intake: current Drinks per week: 20 Alcohol use details: 2-3 GLASSES OF WINE/NIGHT Substance use: never Substance use type: does not use Living arrangements: with family Occupation/Education: occupation Gender identity (if verbalized by the patient): Male Spiritual care concerns: No Exam Narrative: GENERAL: Well-appearing, well-nourished, and in no acute distress. HEAD: Normocephalic, atraumatic. EYES: PERRLA and EOMI. ENT: Nares clear, no rhinorrhea or epistaxis. Mucous membranes moist. Oropharynx without tonsillar hypertrophy exudate or other lesions. NECK: Supple. No adenopathy or masses. CHEST: No respiratory distress. Clear to auscultation. No wheezes rales or rhonchi HEART: Regular rate and rhythm. No murmur heard. Normal peripheral pulses. ABDOMEN: Soft, nontender, nondistended, normal active bowel sounds. MSK: Normal range of motion. No edema. SKIN: Warm, dry, no rash. NEURO: Alert and oriented x3. No focal deficits. PSYCH: Normal mood and affect. Course Course Emergency Course: Reevaluation 1438: Feeling better and ready to go home Vital Signs Vital signs: Vital Signs Temperature 97.8 F 02/12/23 11:13 Pulse Rate 65 02/12/23 11:13 Respiratory Rate 18 02/12/23 11:13 Blood Pressure 153/97 H 02/12/23 11:13 Pulse Oximetry 100 02/12/23 11:13 Oxygen Delivery Room Air 02/12/23 11:13 Temperature 97.8 F 02/12/23 11:13 Pulse Rate 60
[2023-02-12 14:30] LABS: Troponin I < 0.012 ng/mL (0.000-0.034)
== END 2023-02-12 14:50 | disposition home or self-care (01) ==
PROVIDERS: Student in an Organized Health Care Education/Training Program; Emergency Provider Physician Assistant
DX: R07.89 Other chest pain (principal); J45.909 Unspecified asthma, uncomplicated; I10 Essential (primary) hypertension; K21.9 Gastro-esophageal reflux disease without esophagitis; F31.9 Bipolar disorder, unspecified; F41.9 Anxiety disorder, unspecified; Z87.442 Personal history of urinary calculi; R94.31 Abnormal electrocardiogram [ECG] [EKG]
CPT/HCPCS: 36415; 71046; 80053; 83690; 84484; 85025; 85610; 85730; 93005; 99284; A9270

== ENCOUNTER 2023-08-05 10:10 | Emergency (ER) | payer BC, SELFPAY ==
[2023-08-05 10:20] VITALS: BP 133/80; PULSE 90; RESP 18; TEMP 37.7; O2SAT 100
--- NOTE | 2023-08-05 10:25 | ECG_ITS ---
Measurements Intervals [place] Rate: 96 P: 30 SD: 155 QRS: 4 QRSD: 86 T: 30 QT: 333 QTc: 421 Interpretive Statements SINUS RHYTHM WITH OCCASIONAL ECTOPIC PREMATURE COMPLEXES POSSIBLE LEFT ATRIAL ENLARGEMENT [-0.1mV P WAVE IN V1/V2] ABNORMAL ECG COMPARED TO ECG 02/12/2023 10:49:03 NO SIGNIFICANT CHANGES Electronically Signed On 08-05-2023 11:54:33 CLINICAL APPEALS AUDITOR by Kaleb Sol M.D.
[2023-08-05 11:13] VITALS: O2SAT 97
[2023-08-05] MEDS: SODIUM CHLORIDE 0.9% IV 1,000 ML 999 ML IV CONT (11:24)
[2023-08-05] MEDS: KETOROLAC 30 MG/ML VIAL (*BKC) IV PUSH (11:24)
[2023-08-05 11:25] VITALS: BP 130/90; PULSE 77; RESP 19; O2SAT 100
[2023-08-05 11:47] LABS: Influenza A QL RT-PCR Negative (Negative); Influenza B QL RT-PCR Positive (Negative); RSV RNA, RT-PCR Negative (Negative); SARS-CoV-2 RNA PCR Negative (Negative)
[2023-08-05 12:26] VITALS: BP 143/90; PULSE 72; RESP 17; TEMP 37.1; O2SAT 100
--- NOTE | 2023-08-05 12:42 | ED.GENADULT ---
HPI - General Adult General Chief complaint: Upper Respiratory Infection Stated complaint: mult c/o, flu-like sx Time Seen by Provider: 08/05/23 11:08 History of Present Illness HPI narrative: Patient is a 48-year-old male who presents ER with febrile illness. He has been having sweats and chills. He has body aches as well as some mild headache and a cough. No known sick contacts. No vomiting. He has been taking Tylenol and ibuprofen. Related Data Home Medications Medication Instructions Recorded Confirmed omeprazole 40 mg capsule,delayed 40 mg PO DAILY 12/08/19 03/10/22 release lisinopril 10 mg tablet 20 mg PO DAILY 01/03/22 03/10/22 buspirone 30 mg tablet 30 mg PO BID 03/04/22 03/10/22 multivitamin 1 tablet PO DAILY 03/04/22 03/10/22 Allergies Allergy/AdvReac Type Severity Reaction Status Date / Time No Known Allergies Allergy Verified 03/26/22 08:34 Review of Systems Constitutional: Constitutional: Reports chills, Reports fatigue and Reports fever(s) Cardiovascular: Cardiovascular: Reports no additional cardiovascular complaints Respiratory: Respiratory: Reports cough, Denies dyspnea and Denies wheezing Gastrointestinal: Gastrointestinal: Reports no additional gastrointestinal complaints REPLACED BY [facility] Past Medical History Medical History Anxiety Asthma Bipolar disorder BMI 29.0-29.9,adult Cutaneous abscess of right lower extremity ETOH abuse GERD (gastroesophageal reflux disease) Hypertension Nephrolithiasis Panic disorder Surgical History Surgical History (Updated 04/11/22 @ 21:05 by Emily Bustillo PA-C) H/O colonoscopy /p colonoscopy w/ poss bx or polypectomy History of appendectomy History of incision and drainage MRSA abscess right thigh approximately 2009 Family History Family History Mother Depression Asthma Father , Age 37 Unknown No problems noted. Sibling Schizophrenia Social History Social History Smoking status: Never smoker Alcohol intake: current Drinks per week: 20 Alcohol use details: 2-3 GLASSES OF WINE/NIGHT Substance use: never Substance use type: does not use Living arrangements: with family Occupation/Education: occupation Gender identity (if verbalized by the patient): Male Spiritual care concerns: No Exam Narrative: GENERAL: Well-appearing, well-nourished, and in no acute distress. HEAD: Normocephalic, atraumatic. ENT: Mucous membranes moist. Normal appearing posterior oropharynx. NECK: Supple. CHEST: Clear to auscultation. No respiratory distress. HEART: Regular rate and rhythm. Normal peripheral pulses. EXTREMITIES: Normal range of motion. No edema. NEURO: Alert and oriented x3. PSYCH: Normal mood and affect. Course Course Emergency Course: Patient received Toradol and fluids. Informed of results. Discharge home. Vital Signs Vital signs: Vital Signs Temperature 100 F H 08/05/23 10:20 Pulse Rate 90 08/05/23 10:20 Respiratory Rate 18 08/05/23 10:20 Blood Pressure 133/80 08/05/23 10:20 Pulse Oximetry 100 08/05/23 10:20 Oxygen Delivery Room Air 08/05/23 10:20 Temperature 98.7 F 08/05/23 12:26 Pulse Rate 72 08/05/23 12:26 Respiratory Rate 17 08/05/23 12:26 Blood Pressure 143/90 H 08/05/23 12:26 Pulse Oximetry 100 08/05/23 12:26 Oxygen Delivery Room Air 08/05/23 11:13 Medical Decision Making Vital Signs Vital Signs: Vital Signs Temperature 100 F H 08/05/23 10:20 Pulse Rate 90 08/05/23 10:20 Respiratory Rate 18 08/05/23 10:20 Blood Pressure 133/80 08/05/23 10:20 Pulse Oximetry 100 08/05/23 10:20 Oxygen Delivery Room Air 08/05/23 10:20 Temperature 98.7 F 08/05/23 12:26 Pulse Rate 72 08/05/23 12:26 Respiratory Rate 17 0
== END 2023-08-05 12:57 | disposition home or self-care (01) ==
PROVIDERS: Emergency Provider Emergency Medicine
DX: J10.1 Influenza due to other identified influenza virus with other respiratory manifestations (principal); Z20.822 Contact with and (suspected) exposure to COVID-19; J45.909 Unspecified asthma, uncomplicated; I10 Essential (primary) hypertension; K21.9 Gastro-esophageal reflux disease without esophagitis; F41.9 Anxiety disorder, unspecified; F31.9 Bipolar disorder, unspecified; Z86.14 Personal history of Methicillin resistant Staphylococcus aureus infection
CPT/HCPCS: 87637; 93005; 96361; 96374; 99284; J1885; J7030

== ENCOUNTER 2023-08-12 05:55 | Emergency (ER) | payer BC, SELFPAY ==
[2023-08-12] VITALS (7 sets, daily range): BP systolic 150–158; BP diastolic 91–102; PULSE 62–82; RESP 16–20; TEMP 37; O2SAT 97–100
--- NOTE | ~2023-08-12 | XR_ITS ---
Clinical Indication: Cough PA and lateral views of the chest: Comparison: 02/12/2023 Findings: The lungs are clear, without evidence of focal consolidation or pleural effusion. Cardiome diastinal silhouette is within normal limits. Bones and soft tissues are unremarkable. Impression: Normal chest. Reviewed, dictated and finalized at [facility]. TAL MEASUREMENT ADVISOR Impression: Normal chest.
[2023-08-12] MEDS: IPRATROPIUM 0.5 MG/ALBUTEROL SULFATE 2.5 MG AMPUL.NEB 3 ML INHALATION (07:35)
[2023-08-12 07:36] LABS: Basophils Percent Auto 0.1 % (0.2-1.2); Eosinophils Absolute Auto 0.1 K/mm3 (0-0.3); Eosinophils Percent Auto 0.9 % (0-4.4); Hematocrit 42.1 % (42.0-52.0); Hemoglobin 14.6 g/dL (14.0-18.0); Immature Granulocyte Absolute 0.03 K/mm3 (0.00-0.031); Immature Granulocyte Percent A 0.4 % (0-0.5); Lymphocytes Absolute Auto 0.86 K/mm3 (0.9-3.2); Lymphocytes Percent Auto 12.5 % (18.3-44.2); Mean Corpuscular HGB Conc 34.7 g/dl (32-36); Mean Corpuscular Hemoglobin 30.2 pg (26-34); Mean Corpuscular Volume 87.2 fl (80-100); Mean Platelet Volume 9.1 fl (7.4-10.4); Monocytes Absolute Auto 0.8 K/mm3 (0.1-0.6); Monocytes Percent Auto 11.5 % (2.6-8.5); Neutrophils Absolute Auto 5.1 K/mm3 (1.3-6.7); Neutrophils Percent Auto 74.6 % (45.5-73.1); Platelet Count Result 393 k/mm3 (150-375); Red Blood Count 4.83 M/mm3 (4.6-6.20); Red Cell Distribution Width 11.9 % (11.5-14.5); White Blood Count 6.9 K/mm3 (4.5-10.0)
[2023-08-12 07:44] LABS: Alanine Aminotransferase 81 U/L (6-50); Alkaline Phosphatase 197 U/L (38-126); Anion Gap 9 mmol/L (8-16); Aspartate Amino Transferase 39 U/L (17-59); Bilirubin,Total 0.9 mg/dL (0.2-1.3); Blood Urea Nitrogen 12 mg/dL (9-20); Calcium 9.7 mg/dL (8.4-10.2); Carbon Dioxide 27 mmol/L (22-30); Chloride 103 mmol/L (98-107); Estimated CRCL calculation 96 ml/min; Estimated Glomerular Filt Rate > 60; Glucose 97 mg/dL (65-110); Sodium 139 mmol/L (137-145)
[2023-08-12] MEDS: SODIUM CHLORIDE 0.9% IV 1,000 ML 999 ML IV CONT (08:01)
[2023-08-12] MEDS: KETOROLAC 30 MG/ML VIAL (*BKC) IV PUSH (08:01)
[2023-08-12] MEDS: ONDANSETRON INJ 4 MG/2 ML VIAL IV PUSH (08:02)
--- NOTE | 2023-08-12 08:03 | ED.GENADULT ---
HPI - General Adult General Chief complaint: Upper Respiratory Infection Stated complaint: flu symptoms Time Seen by Provider: 08/12/23 06:57 History of Present Illness HPI narrative: patient is a 48-year-old male who presents ER with continued flu illness. Recently seen in the ER and diagnosed with influenza. Patient reports he continues to have body aches, occasional headache, he has been having congestion with cough and vomiting. Reports he has not had a good appetite. No loss of consciousness. Reports each morning he has sweats. Related Data Home Medications Medication Instructions Recorded Confirmed omeprazole 40 mg capsule,delayed 40 mg PO DAILY 12/08/19 03/10/22 release lisinopril 10 mg tablet 20 mg PO DAILY 01/03/22 03/10/22 buspirone 30 mg tablet 30 mg PO BID 03/04/22 03/10/22 multivitamin 1 tablet PO DAILY 03/04/22 03/10/22 Allergies Allergy/AdvReac Type Severity Reaction Status Date / Time No Known Allergies Allergy Verified 03/26/22 08:34 Review of Systems Constitutional: Constitutional: Reports chills, Reports fatigue and Reports fever(s) ENT: Reports nasal congestion and Denies sore throat Cardiovascular: Cardiovascular: Reports no additional cardiovascular complaints Respiratory: Respiratory: Reports cough, Reports dyspnea and Denies wheezing Gastrointestinal: Gastrointestinal: Reports no additional gastrointestinal complaints Genitourinary: Genitourinary: Reports no additional male genitourinary complaints [facility] Past Medical History Medical History Anxiety Asthma Bipolar disorder BMI 29.0-29.9,adult Cutaneous abscess of right lower extremity ETOH abuse GERD (gastroesophageal reflux disease) Hypertension Nephrolithiasis Panic disorder Surgical History Surgical History (Updated 04/11/22 @ 21:05 by Emily Bustillo PA-C) H/O colonoscopy /p colonoscopy w/ poss bx or polypectomy History of appendectomy History of incision and drainage MRSA abscess right thigh approximately 2009 Family History Family History Mother Depression Asthma Father , Age 37 Unknown No problems noted. Sibling Schizophrenia Social History Social History Smoking status: Never smoker Alcohol intake: current Drinks per week: 20 Alcohol use details: 2-3 GLASSES OF WINE/NIGHT Substance use: never Substance use type: does not use Living arrangements: with family Occupation/Education: occupation Gender identity (if verbalized by the patient): Male Spiritual care concerns: No Exam Narrative: GENERAL: Well-appearing, well-nourished, and in no acute distress. HEAD: Normocephalic, atraumatic. ENT: Mucous membranes moist. CHEST: No respiratory distress. Wheezing that clears with cough. HEART: Regular rate and rhythm. Normal peripheral pulses. ABDOMEN: Soft, nontender, nondistended. EXTREMITIES: Normal range of motion. No edema. SKIN: Warm, dry, no rash. NEURO: Alert and oriented x3. PSYCH: Normal mood and affect. Course Course Emergency Course: Patient received antiemetics and fluids and Toradol. Labs on imaging reassuring. Patient felt appropriate for discharge home. Will provide Zofran. Vital Signs Vital signs: Vital Signs Temperature 98.6 F 08/12/23 05:58 Pulse Rate 82 08/12/23 05:58 Respiratory Rate 20 08/12/23 05:58 Pulse Oximetry 100 08/12/23 05:58 Oxygen Delivery Room Air 08/12/23 05:58 Temperature 98.6 F 08/12/23 05:58 Pulse Rate 66 08/12/23 07:39 Respiratory Rate 16 08/12/23 07:39 Blood Pressure 150/101 H 08/12/23 07:01 Pulse Oximetry 97 08/12/23 07:01 Oxygen Delivery Room Air 08/12/23 06:39 Medical Decision Making Vital Signs Vital Signs: Vital Signs Temperature 98.6 F 08/12/23 05:58 Pu
--- NOTE | 2023-08-19 07:24 | PC.NURSE ---
LATE ENTRY This note is being entered to document information to the patient's record. The following information was omitted on [08/12/23], by [Vinod YEE ended at 0902.
== END 2023-08-12 08:39 | disposition home or self-care (01) ==
PROVIDERS: Emergency Provider Emergency Medicine
DX: J11.89 Influenza due to unidentified influenza virus with other manifestations (principal); R11.10 Vomiting, unspecified; I10 Essential (primary) hypertension; J45.909 Unspecified asthma, uncomplicated; K21.9 Gastro-esophageal reflux disease without esophagitis; F41.0 Panic disorder [episodic paroxysmal anxiety]; F31.9 Bipolar disorder, unspecified; Z87.442 Personal history of urinary calculi; Z86.14 Personal history of Methicillin resistant Staphylococcus aureus infection
CPT/HCPCS: 36415; 71046; 80053; 85025; 94640; 96361; 96374; 96375; 99284; J1885; J2405; J7030

== ENCOUNTER 2023-09-18 14:15 | Emergency (ER) | payer BC, SELFPAY ==
--- NOTE | ~2023-09-18 | XR_ITS ---
EXAMINATION: XR chest 2V DATE: 09/18/2023 14:44 INDICATION: Chest pain. TECHNIQUE: Frontal and lateral views of the chest were obtained. COMPARISON: Chest 2 views 08/12/2023, CT abdomen and pelvis 11/17/2021 FINDINGS: There is no pneumonia, pleural effusion, or pneumothorax. The heart size is normal. There i s mild chronic anterior wedging of multiple midthoracic vertebral bodies. IMPRESSION: 1. No acute cardiopulmonary disease. Reviewed, dictated and finalized at location A.
--- NOTE | 2023-09-18 14:17 | ECG_ITS ---
Measurements Intervals [place] Rate: 73 P: 30 MI: 143 QRS: 18 QRSD: 98 T: 32 QT: 398 QTc: 439 Interpretive Statements SINUS RHYTHM VENTRICULAR PREMATURE COMPLEX POSSIBLE LEFT ATRIAL ENLARGEMENT BORDERLINE ST ABNORMALITY- ANTEROLATERAL LEADS BASELINE ARTIFACT- I, II, III, AVR, AVL, AVF, V1-V6 BORDERLINE ECG COMPARED TO ECG 08/05/2023 10:32:01 NO SIGNIFICANT CHANGES Electronically Signed On 09-18-2023 14:23:04 CDT by Chemo Pollock D.O.
[2023-09-18 14:30] VITALS: BP 176/102; PULSE 62; RESP 16; TEMP 36.4; O2SAT 100
[2023-09-18 14:37] VITALS: BP 177/100; PULSE 72; RESP 18; TEMP 36.7; O2SAT 100
[2023-09-18 14:41] LABS: Basophils Percent Auto 0.5 % (0.2-1.2); Eosinophils Absolute Auto 0.1 K/mm3 (0-0.3); Eosinophils Percent Auto 1.6 % (0-4.4); Hematocrit 44.9 % (42.0-52.0); Hemoglobin 15.3 g/dL (14.0-18.0); Immature Granulocyte Absolute 0.02 K/mm3 (0.00-0.031); Immature Granulocyte Percent A 0.3 % (0-0.5); Lymphocytes Absolute Auto 1.21 K/mm3 (0.9-3.2); Mean Corpuscular HGB Conc 34.1 g/dl (32-36); Mean Corpuscular Volume 91.1 fl (80-100); Mean Platelet Volume 9.2 fl (7.4-10.4); Monocytes Absolute Auto 0.4 K/mm3 (0.1-0.6); Neutrophils Absolute Auto 4.6 K/mm3 (1.3-6.7); Neutrophils Percent Auto 72.6 % (45.5-73.1); Platelet Count Result 268 k/mm3 (150-375); Red Blood Count 4.93 M/mm3 (4.6-6.20); Red Cell Distribution Width 13.6 % (11.5-14.5); White Blood Count 6.4 K/mm3 (4.5-10.0)
[2023-09-18 14:51] LABS: INR 0.9; Prothrombin Time 12.9 Seconds (11.1-14.7)
[2023-09-18 14:52] LABS: Partial Thromboplastin Time 25.5 Seconds (22.3-36.8)
[2023-09-18 14:53] LABS: Alanine Aminotransferase 46 U/L (6-50); Albumin Level 4.6 g/dL (3.5-5.1); Alkaline Phosphatase 99 U/L (38-126); Anion Gap 11 mmol/L (4-12); Aspartate Amino Transferase 32 U/L (17-59); Bilirubin,Total 0.6 mg/dL (0.2-1.3); Blood Urea Nitrogen 17 mg/dL (9-20); Calcium 9.7 mg/dL (8.4-10.2); Carbon Dioxide 22 mmol/L (22-30); Chloride 104 mmol/L (98-107); Estimated CRCL calculation 66 ml/min; Estimated Glomerular Filt Rate 59; Glucose 103 mg/dL (65-110); Lipase 251 U/L (23-300); Potassium 3.9 mmol/L (3.4-5.0); Sodium 137 mmol/L (137-145)
[2023-09-18 15:03] LABS: Troponin I < 0.012 ng/mL (0.000-0.034)
[2023-09-18 15:30] VITALS: BP 164/97; PULSE 6; RESP 16; TEMP 36.6; O2SAT 100
[2023-09-18] MEDS: LORazepam (*CRX) 0.5 MG TABLET PO (16:14)
--- NOTE | 2023-09-18 16:15 | ED.CHESTPAIN ---
HPI - Chest Pain General Chief Complaint: Chest Pain Stated Complaint: chest pain Time Seen by Provider: 09/18/23 14:28 History of Present Illness HPI narrative: Patient has history of anxiety, panic attacks, presents here with chest pain that started earlier today, he has had similar symptoms with panic attacks but has been persistent so he came into the hospital. He states that he does drink alcohol most days because he thinks it makes his anxiety better, he did also try taking an edible. Related Data Home Medications Medication Instructions Recorded Confirmed omeprazole 40 mg capsule,delayed 40 mg PO DAILY 12/08/19 03/10/22 release lisinopril 10 mg tablet 20 mg PO DAILY 01/03/22 03/10/22 buspirone 30 mg tablet 30 mg PO BID 03/04/22 03/10/22 multivitamin 1 tablet PO DAILY 03/04/22 03/10/22 Allergies Allergy/AdvReac Type Severity Reaction Status Date / Time No Known Allergies Allergy Verified 09/18/23 14:15 Review of Systems Review of Systems: CONST: No fever. HEENT: No sore throat C/V: Chest tightness RESP: Shortness of breath GI: No abdominal pain : No dysuria. M/S: No joint pain. SKIN: No rash. NEURO: [No headache or focal numbness or weakness] PSYCH: Anxiety PMFSH Past Medical History Medical History Anxiety Asthma Bipolar disorder BMI 29.0-29.9,adult Cutaneous abscess of right lower extremity ETOH abuse GERD (gastroesophageal reflux disease) Hypertension Nephrolithiasis Panic disorder Surgical History Surgical History (Updated 04/11/22 @ 21:05 by Emily Bustillo PA-C) H/O colonoscopy /p colonoscopy w/ poss bx or polypectomy History of appendectomy History of incision and drainage MRSA abscess right thigh approximately 2009 Family History Family History Mother Depression Asthma Father , Age 37 Unknown No problems noted. Sibling Schizophrenia Social History Social History Smoking status: Never smoker Alcohol intake: current Drinks per week: 20 Alcohol use details: 2-3 GLASSES OF WINE/NIGHT Substance use: never Substance use type: does not use Living arrangements: with family Occupation/Education: occupation Gender identity (if verbalized by the patient): Male Spiritual care concerns: No Exam Narrative: EXAMINATION OF ORGAN SYSTEMS/BODY AREAS: Constitutional: Vital signs per nursing GENERAL: Appears slightly anxious HEAD: Normal with no signs of head trauma. EYES: EOMI, conjunctiva normal ENT: Hearing grossly intact LUNGS: Nonlabored breathing. HEART: [Regular rate and rhythm] ABD: [Soft], [nontender to palpation]. Distended. EXT: Normal range of motion SKIN: [No rashes or lesions.] NEURO: [Alert and oriented x 3. No gross focal sensory or strength deficits.] PSYCH: Anxious affect Course Vital Signs Vital signs: Vital Signs Temperature 97.6 F 09/18/23 14:30 Pulse Rate 62 09/18/23 14:30 Respiratory Rate 16 09/18/23 14:30 Blood Pressure 176/102 H 09/18/23 14:30 Pulse Oximetry 100 09/18/23 14:30 Temperature 97.9 F 09/18/23 16:45 Pulse Rate 61 09/18/23 16:45 Respiratory Rate 16 09/18/23 16:45 Blood Pressure 155/98 H 09/18/23 16:45 Pulse Oximetry 100 09/18/23 16:45 Oxygen Delivery Room Air 09/18/23 14:37 MDM - Chest Pain MDM Narrative Medical decision making narrative: Patient with history of anxiety/panic attacks presenting here with symptoms consistent with panic attack. On exam patient is slightly anxious and tachypneic. I will obtain EKG and chest xray to rule out arrhythmia/ischemia, pneumothorax, or other cause of chest discomfort/shortness of breath. Chest x-ray on my independent interpretation does not show any acute abnormality, no pneumothorax or consolidation
[2023-09-18 16:30] VITALS: BP 168/93; PULSE 60; RESP 18; TEMP 36.6; O2SAT 100
[2023-09-18 16:45] VITALS: BP 155/98; PULSE 61; RESP 16; TEMP 36.6; O2SAT 100
== END 2023-09-18 17:18 | disposition home or self-care (01) ==
PROVIDERS: Emergency Provider Emergency Medicine; PCP Family Medicine Sports Medicine
DX: R07.89 Other chest pain (principal); I10 Essential (primary) hypertension; J45.909 Unspecified asthma, uncomplicated; K21.9 Gastro-esophageal reflux disease without esophagitis; F31.9 Bipolar disorder, unspecified; F41.0 Panic disorder [episodic paroxysmal anxiety]; Z87.442 Personal history of urinary calculi; Z86.14 Personal history of Methicillin resistant Staphylococcus aureus infection; I49.3 Ventricular premature depolarization; R94.31 Abnormal electrocardiogram [ECG] [EKG]
CPT/HCPCS: 36415; 71046; 80053; 83690; 84484; 85025; 85610; 85730; 93005; 99284; A9270

== ENCOUNTER 2025-03-02 09:08 | Emergency (ER) | payer OTHER, SELFPAY ==
--- NOTE | ~2025-03-02 | US_ITS ---
LEFT LOWER EXTREMITY VENOUS DUPLEX Clinical History: LLE swelling, calf pain COMPARISON: None TECHNIQUE: Grayscale, color, duplex/spectral Doppler sonography left leg FINDINGS: Left leg common femoral, femoral, popliteal, and calf veins compressible and color Doppler patent. Normal augmentation with distal compression. No internal echoes. IMPRESSION: 1. No left leg DVT. Reviewed, dictated and finalized at location R. IMPRESSION: 1. No left leg DVT.
--- NOTE | ~2025-03-02 | XR_ITS ---
EXAMINATION: XR chest 2V, 03/02/2025 10:30 CDT HISTORY: shortness of breath, chest tightness COMPARISON: No comparisons available. Technique: 2 views obtained. Findings: The lungs are clear, no effusion. No pneumothorax. Heart is normal size. Mediastinal and hilar contours are within normal limits. Bony thorax no acute abnormality. Impression: No acute cardiopulmonary abnormality. Reviewed, dictated and finalized at location A. Impression: No acute cardiopulmonary abnormality.
[2025-03-02 09:39] VITALS: BP 167/91; PULSE 81; TEMP 36.6; O2SAT 99
--- OUTSIDE RECORDS SUMMARY | 2025-03-02 09:50 | XMS_ITS | Clinical Summary ---
Author Organization [facility] [id number] [place] Address [address] [place] [id number] Care Team Providers Care Nutrition Educator Name Role Phone Unknown, Notinfile Primary Care Provider Unavail able Allergies Active Allergy Reactions Criticality Noted Date Comments Escitalopram Anxiety,Other (See comments) Low 01/01/2022 Over emotional, sexual dysfunction Medications albuterol HFA (PROVENTIL HFA,VENTOLIN HFA,PROAIR HFA) 90 mcg/actuation inhaler albuterol sulfate HFA 90 mcg/actuation aerosol inhaler INL 2 PFS PO Q 4 H PRN Active omeprazole OTC (PriLOSEC OTC) 20 mg EC tablet Take 2 tablets (40 mg total) by mouth daily Active rosuvastatin (CRESTOR) 5 mg tabletIndications: High cholesterol Take 1 tablet (5 mg total) by mouth daily 90 tablet 1 3 Active LORazepam (ATIVAN) 0.5 mg tabletIndications: AMPARO (generalized anxiety disorder),Bipolar 2 disorder, major depressive episode (HCC) TAKE 1 TABLET BY MOUTH ONCE DAILY NEEDED FOR ANXIETY . USE SPARINGLY, HAS ADDICTION RISK. 30 tablet 3 Active ondansetron ODT (ZOFRAN-ODT) 4 mg disintegrating tablet Take 1 tablet (4 mg total) by mouth every 6 (six) hours as needed 4 Active amLODIPine (NORVASC) 10 mg tabletIndications: Primary hypertension Take 1 tablet (10 mg total) by mouth daily 90 tablet 4 Active busPIRone (BUSPAR) 10 mg tabletIndications: Generalized Anxiety Disorder Take 2 tablets (20 mg total) by mouth 2 (two) times a day 360 tablet 4 Active lisinopriL (PRINIVIL,ZESTRIL) 40 mg tabletIndications: Primary hypertension Take 1 tablet by mouth once daily 90 tablet 4 Active Active Problems Problem Noted Date Diagnosed Date Bipolar 2 disorder, major depressive episode Overview (04/08/2022): Knees improvement. Refer to psych. stressed need to schedule and keep appt. Contract for safety. Will trial Lamictal while awaiting psych appointment High cholesterol 04/08/2022 Mild intermittent asthma without complication Gastroesophageal reflux disease without esophagi tis 01/01/2022 Hypertensive disorder 01/26/2019 AMPARO (generalized anxiety disorder) 01/26/2019 Resolved Problems Problem Noted Date Diagnosed Date Resolved Date Asthma 01/26/2019 04/08/2022 Immunizations Immunization Administration Dates Next Due Tdap 01/01/2022 Surgical History Surgery Date Site/Laterality Comments OTHER SURGICAL HISTORY percutanous drain for ruptured appendicitis INFECTED SKIN DEBRIDEMENT staph abcess right leg WISDOM TOOTH EXTRACTION Left left was removed Medical History Medical History Date Comments Bipolar 2 disorder (HCC) AMPARO (generalized anxiety disorder) Primary hypertension Appendicitis High cholesterol Family History Medical History Relation Name Comments Other Father at 37 of u nexplained cause. did head 24 hrs prior. Aortic aneurysm Maternal Grandfather Pancreatic cancer Mother Relation Name Status Comments Father Maternal Grandfather Mother Social History Tobacco Use Types Packs/Day Years Used Date Smoking Tobacco: Never Smokeless Tobacco: Never Tobacco Cessation:Counseling Given: Not Answered AUDIT-C Answer Date Recorded Q1: How often do you have a drink containing alc ohol? 2-3 times a week 01/01/2022 Q2: How many drinks containi ng alcohol do you have on a typical day when you are drinking? 1 or 2 01/01/2022 Frequency of Binge Drinking Not on file 12/20 PHQ-2 Answer Date Recorded PHQ-2 Total Score (If total score is 3 or more points, staff should administer the PHQ-9) 4 01/22/2023 Personal Safety Answer Date Recorded Getting School Help Needed Not on file 08/22 Sex and Gender Information Value Date Recorded Sex Assigned at Not on file Legal Sex Male 8:17 AM CDT Gender Identity Not on file Sexual Orientation Not on file Obstetrics History Last Filed Vital Signs Vital Sign Reading Time Taken Comments Blood Pressure 138/78 10/13/2023 6:31 PM CDT Pulse 73 10/13/2023 9:37 AM CDT Temperature - - Respiratory Rate 14 10/13/2023 6:31 PM CDT Oxygen Saturation - - Inhaled Oxygen Concentration - - Weight 100.2 kg (221 lb) 10/13/2023 9:37 AM CDT Height 180.3 cm (5' 11) 10/13/2023 9:37 AM CDT Body Mass Index 30.82 10/13/2023 9:37 AM CDT Plan of Treatment Health Maintenance Due Date Last Done Comments Hepatitis B Screening 1993 Regular Well Visit/Exam 18-64 1993 Pneumococcal vaccine <65 (1 of 2 - PCV) 1994 Depression Screening 01/23/2024 01/22/2023, 01/22/2023, 09/01/2022, Additional history exists Covid-19 Vaccine (4 - 2023-2 5 season) 2024 06/26/2021, 10/11/2020, 09/13/2020 Influenza Vaccine (#1) 2025 DTaP/Tdap/Td Vaccine (2 - Td or Tdap) 01/02/2032 01/01/2022 Colon Cancer Screening-Colonoscopy 01/22/20322021 Hepatitis C Screening Completed 10/21/2023 Procedures Procedure Name Priority Date/Time Associated Diagnosis Comments HEPATITIS C ANTIBODY Routine 10/21/2023 9:04 AM CDT Encounter for hepatitis C screening test for low risk patient COLONOSCOPY Routine 01/21/2022 from Last 3 Months or Most Recently Relevant to Health Maintenance Results * Hepatitis C antibody Blood (10/21/2023 9:04 AM CDT) Hep C Ab Nonreactive Nonreactive Comment: Interpretive Data Nonreactive: Antibodies to HCV not detected. Does NOT exclude the possibility of recent exposure to HCV. Equivocal: Equivocal for HCV antibodies. Supplemental molecular testing will be automatically performed to determine infection status in accordance with current CDC screening recommendations. Reactive: Positive for HCV antibodies. This may represent current or past HCV infection. Supplemental molecular testing will be automatically performed to determine current infection status in accordance with current CDC screening recommendations. Interpretive data was last revised on 2019. Blood 10/21/2023 9:04 AM CDT 10/21/2023 1:41 PM CDT Angy Null MD LAB MICROBIOLOGY - GEN ERAL ORDERABLES Final Result [facility] [id number] Department [place] [address] * HM COLONOSCOPY (01/21/2022) us Historical Provider HEALTH MAINTENANCE Final Result from Last 3 Months or Most Recently Relevant to Health Maintenance Insurance [employer] Care Teams Nutrition Educator Relationship Specialty Start Date End Date Unknown, Notinfile PCP - General 02/09/24
--- NOTE | 2025-03-02 10:07 | ECG_ITS ---
Test Date: 2025-03-02 10:26:20 Measurements Intervals [place] Rate: 75 P: 35 [place]: 171 QRS: 10 QRSD: 94 T: 27 QT: 387 QTc: 434 Interpretive Statements SINUS RHYTHM WITH OCCASIONAL VENTRICULAR PREMATURE COMPLEXES No previous ECG available for comparison Electronically Signed On 03-02-2025 11:28:17 CDT by Jamar Shirley M.D.
--- NOTE | 2025-03-02 10:09 | ED.EXTPRO ---
HPI - Extremity Problem General Chief complaint: Extremity Problem,Nontraumatic Stated complaint: leg swelling Time Seen by Provider: 03/02/25 09:14 History of Present Illness HPI Narrative: Patient is a 49-year-old male who presents to the ER with concerns of swollen legs. He reports he 1st noticed his bilateral swelling on Thursday, 5 days ago. Patient reports the swelling has gotten worse and is now accompanied by chest tightness and shortness of breath. He denies any history of blood clots, congestive heart failure, or diabetes. Patient endorses a history of high blood pressure, anxiety, appendectomy, and bipolar disorder. He denies any recent fevers, open wounds, or swollen joints. Related Data Home Medications ?Medication ?Instructions ?Recorded ?Confirmed ?Last Taken ?Type omeprazole 40 mg capsule,delayed 40 mg PO DAILY 12/08/19 01/01/24 01/21/22 05:30 History release multivitamin 1 tablet PO DAILY 03/04/22 01/01/24 Unknown History amlodipine 10 mg tablet 10 mg PO DAILY 01/01/24 01/01/24 Unknown History buspirone 10 mg tablet 10 mg PO BID 01/01/24 01/01/24 Unknown History Allergies Allergy/AdvReac Type Severity Reaction Status Date / Time No Known Allergies Allergy Verified 03/02/25 10:06 Review of Systems Review of Systems: All systems reviewed & are unremarkable except as noted in HPI and below PMFSH Past Medical History Medical History ETOH abuse BMI 29.0-29.9,adult Bipolar disorder Nephrolithiasis Cutaneous abscess of right lower extremity GERD (gastroesophageal reflux disease) Anxiety Panic disorder Hypertension Asthma Surgical History Surgical History History of appendectomy H/O colonoscopy /p colonoscopy w/ poss bx or polypectomy History of incision and drainage MRSA abscess right thigh approximately 2009 Family History Family History Mother Depression Asthma Father , Age 37 Unknown No problems noted. Sibling Schizophrenia Social History Social History Smoking status: Never smoker Alcohol intake: current Drinks per week: 20 Alcohol use details: 2-3 GLASSES OF WINE/NIGHT Substance use: never Substance use type: does not use Living arrangements: with family Occupation/Education: occupation Gender identity (if verbalized by the patient): Male Spiritual care concerns: No Exam Narrative: GENERAL: Well appearing, well-nourished, non-toxic, in no acute distress. HEAD: Normocephalic, atraumatic. NECK: Supple. No adenopathy, no masses. RESPIRATORY: Airway patent, respirations nonlabored. Clear to auscultation bilaterally, no rales, rhonchi, wheezing. CARDIOVASCULAR: Regular rate and rhythm without murmurs, rubs, or gallops. Peripheral pulses 2+ and equal bilaterally. ABDOMINAL: Soft, nontender, nondistended, no hepatosplenomegaly. Normoactive BS. MUSCULOSKELETAL: Moves all extremities. Strength/ROM intact without gross deformities. + Savana's sign left leg SKIN: Warm, dry, normal color. No rashes. Mild bilateral lower extremity, no pitting NEURO: A&O X3. Speech clear. Cranial nerves II-XII intact. No ataxic movements. PSYCHIATRIC: Appropriate mood and affect. Normal interaction. Course Vital Signs Vital signs: Vital Signs Temperature 36.6 C 03/02/25 09:39 Pulse Rate 81 03/02/25 09:39 Blood Pressure 167/91 H 03/02/25 09:39 Pulse Oximetry 99 03/02/25 09:39 Oxygen Delivery Room Air 03/02/25 09:39 Temperature 36.6 C 03/02/25 09:39 Pulse Rate 81 03/02/25 09:39 Blood Pressure 167/91 H 03/02/25 09:39 Pulse Oximetry 99 03/02/25 09:39 Oxygen Delivery Room Air 03/02/25 09:39 MDM - Extremity (Nontraumatic) MDM Narrative Medical decision making narrative: Patient is a 49-year-old male who presents to the ER with concerns of swollen legs. He reports he 1st noticed his bilateral swelling on Thursday, 5 days ago. Patient reports the swelling has gotten worse and is now accompanied by chest tightness and shortness of breath. He denies any history of blood clots, congestive heart failure, or diabetes. Patient endorses a history of high blood pressure, anxiety, appendectomy, and bipolar disorder. He denies any recent fevers, open wounds, or swollen joints. Labs Ordered: CBC, CMP, troponin, D-dimer, proBNP Imaging Ordered: Chest x-ray, ultrasound venous Doppler Medications Ordered: None necessary Results: Patient's CBC indicates a RBCs of 4.34, hemoglobin of 12 8, hematocrit of 38.5%. D-dimer was negative. Patient's chemistry indicates ALT of 70. His troponin was negative. Patient's proBNP was 21. Patient's venous ultrasound indicates Left leg common femoral, femoral, popliteal, and calf veins compressible and color Doppler patent. Normal augmentation with distal compression. No internal echoes. Diagnosis: Lower extremity swelling Risks: HEART score: low risk HEART Score for Major Cardiac Events from [employer] on 03/02/2025 All calculations should be rechecked by clinician prior to use RESULT SUMMARY: 3 points Low Score (0-3 points) Risk of MACE of 0.9-1.7%. INPUTS: History ?> 1 = Moderately suspicious EKG ?> 0 = Normal Age ?> 1 = 45-64 Risk factors ?> 1 = 1-2 risk factors Initial troponin ?> 0 = <Normal limit Patient Education/Shared MDM: Results of lab work and imaging shared with patient. Patient strongly advised to follow-up with his PCP as soon as possible. He reports he has an appointment scheduled for Thursday, 4 days from now. He will not be discharged home with any new prescriptions. Strict return precautions provided. Patient verbalized understanding and is in agreement with plan. Vital signs stable at time of discharge. All questions answered. Differential Diagnosis Differential diagnosis: Likely cellulitis, lower extremity edema and deep vein thrombosis of lower extremity Lab Data 03/02/25 10:16 03/02/25 10:16 Labs: Lab Results 03/02/25 Range/Units 10:16 WBC 5.5 (4.5-10.0) K/mm3 RBC 4.34 L (4.6-6.20) M/mm3 Hgb 12.8 L (14.0-18.0) g/dL Hct 38.5 L (42.0-52.0) % MCV 88.7 (80-100) fl MCH 29.5 (26-34) pg MCHC 33.2 (32-36) g/dl RDW 12.5 (11.5-14.5) % Plt Count 254 (150-375) k/mm3 MPV 8.8 (7.4-10.4) fl Immature Gran % (Auto) 0.4 (0-0.5) % Neut % (Auto) 68.4 (45.5-73.1) % Lymph % (Auto) 17.5 L (18.3-44.2) % [place] % (Auto) 7.2 (2.6-8.5) % Eos % (Auto) 6.0 H (0-4.4) % Baso % (Auto) 0.5 (0.2-1.2) % Lymph # (Auto) 0.97 (0.9-3.2) K/mm3 [place] # (Auto) 0.4 (0.1-0.6) K/mm3 Eos # (Auto) 0.3 (0-0.3) K/mm3 Baso # (Auto) 0.0 (0.0-0.1) K/mm3 Abs Immat Gran (auto) 0.02 (0.00-0.031) K/mm3 Absolute Neuts (auto) 3.8 (1.3-6.7) K/mm3 Absolute Nucleated RBC 0.000 (0.0-0.012) K/mm3 Nucleated RBC % 0.0 (0.0-0.2) % D-Dimer < 0.27 (<0.48) ug/mL Sodium 138 (137-145) mmol/L Potassium 4.3 (3.4-5.0) mmol/L Chloride 105 (98-107) mmol/L Carbon Dioxide 25 (22-30) mmol/L Anion Gap 8 (4-12) mmol/L BUN 12 D (9-20) mg/dL Creatinine 0.99 (0.7-1.3) mg/dL Estim Creat Clear Calc 105 ml/min Estimated GFR > 60 (59 - ) Glucose 96 (65-110) mg/dL Calcium 9.0 (8.4-10.2) mg/dL Total Bilirubin 0.4 (0.2-1.3) mg/dL AST 48 (17-59) U/L ALT 70 H (6-50) U/L Alkaline Phosphatase 88 (38-126) U/L Troponin I < 0.012 (0.000-0.034) ng/mL NT-Pro-B Natriuret Pep 21 (19.9-100) pg/mL Total Protein 7.0 (6.3-8.2) g/dL Albumin 4.3 (3.5-5.1) g/dL Discharge Plan Discharge Clinical Impression: Lower extremity edema Patient Disposition: Home Condition: Stable Instructions: Antibiotic Form, Leg Edema (ED) Additional Instructions: Please return to the ER with any worsening symptoms. Follow-up with primary care provider as soon as possible, as discussed. Take all medications as prescribed, including regularly scheduled medications. Please keep your lower extremities elevated and wear compression socks. Patient Language: Korean Prescriptions: No Action omeprazole 40 mg capsule,delayed release(DR/EC) 40 mg PO DAILY amlodipine 10 mg tablet 10 mg PO DAILY buspirone 10 mg tablet 10 mg PO BID lorazepam 0.5 mg tablet 0.5 mg PO DAILY PRN (Reason: anxiety) Qty: 30 0RF multivitamin Tablet 1 tablet PO DAILY rosuvastatin 5 mg tablet 5 mg PO DAILY Qty: 30 0RF vortioxetine 10 mg tablet 10 mg PO DAILY Qty: 30 0RF sertraline 50 mg tablet 50 mg PO DAILY Qty: 90 0RF Rx Instructions: may titrate up by 1/2 tablet (25mg) every week if ineffective lisinopril 40 mg tablet 40 mg PO DAILY Qty: 90 1RF buspirone 30 mg tablet 30 mg PO BID Qty: 60 5RF Follow-up/Referrals: Jim Orosco [Other] Time of Disposition: 12:25
[2025-03-02 10:22] LABS: Hematocrit 38.5 % (42.0-52.0); Hemoglobin 12.8 g/dL (14.0-18.0); Immature Granulocyte Percent A 0.4 % (0-0.5); Lymphocytes Absolute Auto 0.97 K/mm3 (0.9-3.2); Mean Corpuscular HGB Conc 33.2 g/dl (32-36); Mean Corpuscular Hemoglobin 29.5 pg (26-34); Mean Corpuscular Volume 88.7 fl (80-100); Nucleated Red Blood Cells Absolute Auto 0.000 K/mm3 (0.0-0.012); Nucleated Red Blood Cells Perc 0.0 % (0.0-0.2); Platelet Count Result 254 k/mm3 (150-375); Red Blood Count 4.34 M/mm3 (4.6-6.20); White Blood Count 5.5 K/mm3 (4.5-10.0)
[2025-03-02 10:39] LABS: Alanine Aminotransferase 70 U/L (6-50); Albumin Level 4.3 g/dL (3.5-5.1); Alkaline Phosphatase 88 U/L (38-126); Anion Gap 8 mmol/L (4-12); Aspartate Amino Transferase 48 U/L (17-59); Bilirubin,Total 0.4 mg/dL (0.2-1.3); Blood Urea Nitrogen 12 mg/dL (9-20); Calcium 9.0 mg/dL (8.4-10.2); Carbon Dioxide 25 mmol/L (22-30); Chloride 105 mmol/L (98-107); Estimated CRCL calculation 105 ml/min; Estimated Glomerular Filt Rate > 60; Glucose 96 mg/dL (65-110); Potassium 4.3 mmol/L (3.4-5.0); Sodium 138 mmol/L (137-145); Total Protein 7.0 g/dL (6.3-8.2)
[2025-03-02 10:46] LABS: NT Pro B Type Natriuretic Pept 21 pg/mL (19.9-100); Troponin I < 0.012 ng/mL (0.000-0.034)
--- OUTSIDE RECORDS SUMMARY | 2025-03-02 10:57 | XMS_ITS | Clinical Summary ---
Author Organization [facility] [id number] [place] Address [address] [place] [id number] Care Team Providers Care Safety Equipment Testing Specialist Name Role Phone Unknown, [facility] Primary Care [...] Additional history exists Covid-19 Vaccine (4 - 2024-2 6 season) 2025 06/26/2021, 10/11/2020, 09/13/2020 Influenza Vaccine (#1) 2025 [...] - GEN ERAL ORDERABLES Final Result [facility] [id number] [address] Department [place] [address] * HM COLONOSCOPY (01/21/2022) us Historical Provider HEALTH MAINTENANCE Final Result from Last 3 Months or Most Recently Relevant to Health Maintenance Insurance [employer] OOS [employer] Care Teams Safety Equipment Testing Specialist Relationship Specialty Start Date End Date Unknown, Notinfile PCP - General 02/09/24
== END 2025-03-02 12:30 | disposition home or self-care (01) ==
PROVIDERS: Emergency Provider Registered Nurse
DX: R60.0 Localized edema (principal); I10 Essential (primary) hypertension
CPT/HCPCS: 36415; 71046; 80053; 83880; 84484; 85025; 85380; 93005; 93971; 99284